=== PATIENT | female | born 1965 | race Caucasian/White ===

== ENCOUNTER → 2016-12-02 | Outpatient (REF) | payer OTHER ==
[~2016-12-02] MED LIST: METO-207 PO; OMEP20CA3 PO; PRAV40TA PO
[2016-12-02 11:44] LABS: BASO # 0.1 K/mm3 (0.0-0.2); BASO % 1.1 % (0.0-1.0); EOS # 0.1 K/mm3 (0.0-0.50); EOS % 2.2 % (0.0-3.0); LARGE UNSTAINED CELL # 0.1 K/mm3 (0.0-0.4); LARGE UNSTAINED CELL % 1.9 % (0.0-4.0); LYMPH # 2.1 K/mm3 (1.5-4.5); LYMPH % 33.3 % (24.0-44.0); MEAN CORPUSCULAR HEMOGLOBIN 30.5 pg (27.0-33.0); MEAN CORPUSCULAR HGB CONC 32.3 g/dl (32.0-36.5); MEAN CORPUSCULAR VOLUME 94.4 fl (80.0-96.0); MONO # 0.4 K/mm3 (0.0-0.8); MONO % 5.7 % (0.0-5.0); NEUTROPHILS # 3.4 K/mm3 (1.8-7.7); NEUTROPHILS % 55.9 % (36.0-66.0); PLATELET COUNT, AUTOMATED 294 k/mm3 (150-450); RED CELL DISTRIBUTION WIDTH 12.2 % (11.5-14.5); WHITE BLOOD COUNT 6.2 K/mm3 (4.0-10.0)
[2016-12-02 12:18] LABS: ALBUMIN 4.1 GM/DL (3.2-5.2); ALBUMIN/GLOBULIN RATIO 1.24 (1.00-1.93); ALKALINE PHOSPHATASE 88 U/L (45-117); ALT/SGPT 35 U/L (12-78); ANION GAP 10 MEQ/L (8-16); AST/SGOT 23 U/L (15-37); BILIRUBIN,TOTAL 0.6 MG/DL (0.2-1.0); BLOOD UREA NITROGEN 10 MG/DL (7-18); CALCIUM LEVEL 9.3 MG/DL (8.5-10.1); CARBON DIOXIDE LEVEL 29 MEQ/L (21-32); CHLORIDE LEVEL 105 MEQ/L (98-107); CHOLESTEROL LEVEL 211 MG/DL (<200); CREATININE FOR GFR 0.92 MG/DL (0.55-1.02); GLOMERULAR FILTRATION RATE > 60.0 (>51); GLUCOSE, FASTING 86 MG/DL (70-105); POTASSIUM SERUM 4.1 MEQ/L (3.5-5.1); SODIUM LEVEL 144 MEQ/L (136-145); TOTAL PROTEIN 7.4 GM/DL (6.4-8.2); TRIGLYCERIDES LEVEL 148 MG/DL (<150)
== END ==
LOC: M SFHCPLAZ 07:57
PROVIDERS: ATTEND Nurse Practitioner Family
DX: I10 Essential (primary) hypertension (principal)

== ENCOUNTER 2016-12-24 03:03 | Emergency (ER) | payer OTHER ==
[2016-12-24] MEDS ORDERED: dexameTHASONE 20 MG/5 ML VIAL (J1100) As Ordered ONE (04:51)
[2016-12-24] MEDS ORDERED: IPRATROPIUM 0.5MG/ALBUTEROL 2.5MG INH SOL UD 3ML (DUONEB)(J7620) As Ordered ONE (04:58)
--- NOTE | 2016-12-24 05:32 | EDDOCDS ---
Physician Documentation [facility] Name: Helen Carter Age: 51 yrs Sex: Female : 1965 Arrival Date: 12/24/2016 Time: 03:03 Bed 8 Private MD: Disposition: 12/24/16 04:52 Discharged to Home/Self Care. Impression: Acute bronchitis. - Condition is Stable. - Prescriptions for Prednisone 20 mg Oral Tablet - take 3 tablets by ORAL route once daily for 4 days; 12 tablet. - Medication Reconciliation, Local Pharmacy Hours, Work Release Form - 1 day form. - Follow up: Private Physician; When: Call to arrange an appointment; Reason: Recheck today's complaints. - Problem is an ongoing problem. - Symptoms have improved. Historical: - Allergies: No known drug Allergies; - Home Meds: 1. omeprazole 20 mg Oral cpDR 1 cap once daily (Last dose: 12/23/2016) 2. metoprolol succinate 25 mg Tb24 1 tab once daily (Last dose: 12/23/2016) 3. cetirizine 10 mg oral chew 1 tab once daily (Last dose: 12/23/2016) 4. simvastatin 10 mg Oral tab 1 tab once daily (Last dose: 12/23/2016) 5. ProAir HFA 90 mcg/actuation inhalation HFAA 2 puffs every 6 hours (Last dose: Unknown) 6. fluticasone 50 mcg/actuation inhalation dsdv 1 puff 2 times per day (Last dose: 12/23/2016) - PMHx: Hypercholesterolemia; Hypertension; GERD; Seasonal Allergies; - PSHx: ELENA Left ankle X2; D & C; - Social history: Smoking status: Patient states was never smoker of tobacco. No barriers to communication noted, The patient speaks fluent Palestinian, Speaks appropriately for age. - Family history: Not pertinent. - : The pt / caregiver states he / she is not on anticoagulants. Home medication list is obtained from pill bottles. - Exposure Risk Screening:: None identified. 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 0 in. (152.40 cm) (R); Pain 0/10; 03:20 Body Mass Index 34.18 (79.38 kg, 152.40 cm) [facility] MDM: 03:23 Obtain sample by nasopharyngeal swab ordered. [facility] 03:24 -Influenza A&B Rapid Antigen - Nose Ordered. EDMS 04:11 Chest, 2 View (pa\E\lat) Ordered. EDMS 04:43 Albuterol-Ipratropium 3 ml Inhalation once ordered. cs11 04:43 Call Respiratory ordered. cs11 04:43 Decadron - Dexamethasone Sodium Phosphate 10 mg IM once ordered. cs11 04:48 Call Respiratory complete. af2 Administered Medications: 04:58 Drug: Decadron - Dexamethasone Sodium Phosphate 10 mg [dexamethasone 4 mg/mL injection af2 solution (2.5 mL)] Route: IM; Site: right gluteus; 04:59 Drug: Albuterol-Ipratropium 3 ml [ipratropium-albuterol 0.5 mg-3 mg(2.5 mg base)/3 mL [facility] nebulization soln (3 mL)] Route: Inhalation; Signatures: Dispatcher [employer] EDCT Prabha Dolan, RN RN [facility] Duane Irwin DO DO cs11 Alyse Pappas RN RN 2 Jose Beth [facility] MTDD
--- NOTE | 2016-12-24 05:32 | EDDOCDS ---
Nurse's Notes Name: Helen Carter Age: 51 yrs Sex: Female : 1965 Arrival Date: 12/24/2016 Time: 03:03 Bed 8 Private MD: Diagnosis: Acute bronchitis Presentation: 12/24 03:14 Presenting complaint: Patient states: Ill since yesterday, hot, cough, nasal kmg1 congestion. Suicide/Homicide risk assessment- the patient denies having any suicidal and/or homicidal ideations and does not present with any other emotional, behavioral or mental health complaints. Status: Patient is not a child protective services specialist or dependent. Transition of care: patient was not received from another setting of care. 03:14 Acuity: DELMY Level 5 km 03:14 Method Of Arrival: Walkin/Carried/Asstd km 05:31 Adult Sepsis Screening: The patient does not have new or worsening altered mentation. af2 Patient's respiratory rate is less than 22. Systolic blood pressure is greater than 100. Patient has a qSOFA score of 0- Negative Sepsis Screen. Triage Assessment: 03:20 General: Appears in no apparent distress, ill, Behavior is appropriate for age, kmg1 cooperative, pleasant. Pain: Denies pain. HIV screening NA for this visit Offered previously. EENT: Parent/caregiver reports the patient having nasal congestion nasal discharge. Respiratory: Airway is patent Respiratory effort is even, unlabored, Respiratory pattern is regular, symmetrical. 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 omeprazole 20 mg Oral cpDR 1 cap once daily (Last dose: 12/23/2016) 2. metoprolol succinate 25 mg Tb24 1 tab once daily (Last dose: 12/23/2016) 3. cetirizine 10 mg oral chew 1 tab once daily (Last dose: 12/23/2016) 4. simvastatin 10 mg Oral tab 1 tab once daily (Last dose: 12/23/2016) 5. ProAir HFA 90 mcg/actuation inhalation HFAA 2 puffs every 6 hours (Last dose: Unknown) 6. fluticasone 50 mcg/actuation inhalation dsdv 1 puff 2 times per day (Last dose: 12/23/2016) - PMHx: Hypercholesterolemia; Hypertension; GERD; Seasonal Allergies; - PSHx: ELENA Left ankle X2; D & C; - Social history: Smoking status: Patient states was never smoker of tobacco. No barriers to communication noted, The patient speaks fluent Venezuelan, Speaks appropriately for age. - Family history: Not pertinent. - : The pt / caregiver states he / she is not on anticoagulants. Home medication list is obtained from pill bottles. - Exposure Risk Screening:: None identified. Screenin:30 Screening information is obtained from the patient. Fall risk: No risks identified. af2 Assistance ADL's: requires no assistance with activities of daily living. Abuse/DV Screen: The patient / caregiver reports he/she is: not in a situation that causes fear, pain or injury. Nutritional screening: No deficits noted. Advance Directives: Currently, there is no health care proxy. home support is adequate. Assessment: 05:30 General: Appears in no apparent distress, Behavior is cooperative. Respiratory: Airway af2 is patent Respiratory effort is even, unlabored, Breath sounds with wheezes expiratory Reports cough that is. Derm: Skin is pink, warm & dry. Vital Signs: 03:20 BP 140 / 71; Pulse 56; Resp 20; Temp 97.2(O); Pulse Ox 97% on R/A; Weight 79.38 kg (R); kmg1 Height 5 ft. 0 in. (152.40 cm) (R); Pain 0/10; 03:20 Body Mass Index 34.18 (79.38 kg, 152.40 cm) [facility] Vitals: 03:20 Log In Time: December 24, 2016 at 03:05. [facility] ED Course: 03:04 Patient visited by Margot Chavez Reg. 2 03:04 Patient moved to [place] [id number] 03:15 Triage Initiated [facility] 04:10 Duane Irwin DO is Attending Physician. cs11 04:11 Patient visited by Duane Irwin DO. [facility] 04:26 Alyse Ppapas,RN is Primary Nurse. [facility] 04:26 Patient moved to [facility] 05:31 The patient / caregiver is instructed regarding the plan of care and ED course. Patient af2 has correct armband on for positive identification. 05:31 No IV's were initiated during this patient's visit. No procedures done that require af2 assistance. Administered Medications: 04:58 Drug: Decadron - Dexamethasone Sodium Phosphate 10 mg [dexamethasone 4 mg/mL injection af2 solution (2.5 mL)] Route: IM; Site: right gluteus; 04:59 Drug: Albuterol-Ipratropium 3 ml [ipratropium-albuterol 0.5 mg-3 mg(2.5 mg base)/3 mL 6 nebulization soln (3 mL)] Route: Inhalation; RT: 05:01 Initial Med Neb Given as ordered Patient was instructed and evaluated on procedure jh6 Patient tolerated procedure well without adverse effect. Respiratory: Airway is patent Respiratory effort is even, unlabored, Respiratory pattern is regular symmetrical, Breath sounds are clear in left posterior upper lobe, right posterior upper lobe, left posterior lower lobe, right posterior middle lobe and right posterior lower lobe. Order Results: Lab Order: -Influenza A&B Rapid Antigen - Nose; SPEC'M 12/24/16 03:25 Test: INFLUENZA A RAPID SCR by ICA; Value: INFLUENZA A RESULTS NEGATIVE; Status: F Test: INFLUENZA A RAPID SCR by ICA; Value: Comments:; Status: F Test: INFLUENZA B RAPID SCR by ICA; Value: INFLUENZA B RESULTS NEGATIVE; Status: F Test Note: ; The Influenza test is a direct rapid immunoassay for the qualitative detection of Influenza viral antigen. Cell culture (Viral Culture) testing should be considered to confirm NEGATIVE results and to assist in detecting other viruses that can provide similar clinical symptoms. Please contact the lab within 24 hours ([phone]) if confirmatory testing is desired. Outcome: 04:52 Discharge ordered by Provider. cs11 05:31 Discharge Assessment: Patient awake, alert and oriented x 3. No cognitive and/or af2 functional deficits noted. Patient verbalized understanding of disposition instructions. patient administered narcotics - no. The following High Risk Discharge criteria are identified: None. Discharged to home ambulatory. Condition: stable. Discharge instructions given to patient, Instructed on discharge instructions, follow up and referral plans. medication usage, Demonstrated understanding of instructions, medications, Pt was receptive of discharge instructions/ teaching. No special radiology studies were completed. Property :Personal belongings accompany Pt. 05:32 Patient left the ED. af2 Signatures: Prabha Dolan RN RN kmg1 Hollis, Jacob 6 Duane Irwin DO DO cs11 Breanna Huber LPN LPN [facility] [place], Amber,RN RN af2 Margot Chavez, Reg Reg hs2 MTDD
--- NOTE | 2016-12-24 07:20 | REP ---
Clinical: Acute cough . Comparison: 11/23/2013 . Technique: PA and lateral. Findings: The mediastinum and cardiac silhouette are normal. The lung mckee are clear and without acute consolidation, effusion, or pneumothorax. The skeletal structures are intact and normal. Impression: 1. No acute cardiopulmonary process. Signed by Josue Mireles MD 12/24/2016 07:12 A
--- NOTE | 2016-12-26 06:32 | EDDOCDS ---
Physician Documentation [facility] Name: Helen Carter Age: 51 yrs Sex: Female : 1965 Arrival Date: 12/24/2016 Time: 03:03 Bed 8 Private MD: Disposition: 12/24/16 04:52 Discharged to Home/Self Care. Impression: Acute bronchitis. - Condition is Stable. - Prescriptions for Prednisone 20 mg Oral Tablet - take 3 tablets by ORAL route once daily for 4 days; 12 tablet. - Medication Reconciliation, Local Pharmacy Hours, Work Release Form - 1 day form. - Follow up: Private Physician; When: Call to arrange an appointment; Reason: Recheck today's complaints. - Problem is an ongoing problem. - Symptoms have improved. Historical: - Allergies: No known drug Allergies; - Home Meds: 1. omeprazole 20 mg Oral cpDR 1 cap once daily (Last dose: 12/23/2016) 2. metoprolol succinate 25 mg Tb24 1 tab once daily (Last dose: 12/23/2016) 3. cetirizine 10 mg oral chew 1 tab once daily (Last dose: 12/23/2016) 4. simvastatin 10 mg Oral tab 1 tab once daily (Last dose: 12/23/2016) 5. ProAir HFA 90 mcg/actuation inhalation HFAA 2 puffs every 6 hours (Last dose: Unknown) 6. fluticasone 50 mcg/actuation inhalation dsdv 1 puff 2 times per day (Last dose: 12/23/2016) - PMHx: Hypercholesterolemia; Hypertension; GERD; Seasonal Allergies; - PSHx: ELENA Left ankle X2; D & C; - Social history: Smoking status: Patient states was never smoker of tobacco. No barriers to communication noted, The patient speaks fluent Comoran, Speaks appropriately for age. - Family history: Not pertinent. - : The pt / caregiver states he / she is not on anticoagulants. Home medication list is obtained from pill bottles. - Exposure Risk Screening:: None identified. 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 0 in. (152.40 cm) (R); Pain 0/10; 03:20 Body Mass Index 34.18 (79.38 kg, 152.40 cm) [facility] MDM: 03:23 Obtain sample by nasopharyngeal swab ordered. [facility] 03:24 -Influenza A&B Rapid Antigen - Nose Ordered. EDMS 04:11 Chest, 2 View (pa\E\lat) Ordered. EDMS 04:43 Albuterol-Ipratropium 3 ml Inhalation once ordered. cs11 04:43 Call Respiratory ordered. cs11 04:43 Decadron - Dexamethasone Sodium Phosphate 10 mg IM once ordered. cs11 04:48 Call Respiratory complete. af2 05:51 [facility] Payment Agreement was scanned into [employer] and attached to record. hs2 09:19 T-Sheet-- Draft Copy was scanned into [employer] and attached to record. [facility] Administered Medications: 04:58 Drug: Decadron - Dexamethasone Sodium Phosphate 10 mg [dexamethasone 4 mg/mL injection 2 solution (2.5 mL)] Route: IM; Site: right gluteus; 04:59 Drug: Albuterol-Ipratropium 3 ml [ipratropium-albuterol 0.5 mg-3 mg(2.5 mg base)/3 mL 6 nebulization soln (3 mL)] Route: Inhalation; Signatures: Dispatcher [employer] EDND Prabha Dolan, RN RN g1 Duane rIwin DO DO cs11 Alyse Pappas RN RN 2 Margot Chavez, Reg Reg hs2 Mary Huang Jacob [facility] The chart was reviewed and I authenticate all verbal orders and agree with the evaluation and treatment provided.Attachments: 05:51 [facility] Payment Agreement hs2 09:19 T-Sheet-- Draft Copy [facility] Chart Complete MTDD
--- NOTE | 2016-12-26 06:32 | EDDOCDS ---
Physician Documentation [facility] Name: Helen Carter Age: 51 yrs Sex: Female : 1965 Arrival Date: 12/24/2016 Time: 03:03 Bed 8 Private MD: Disposition: 12/24/16 04:52 Discharged to Home/Self Care. Impression: Acute bronchitis. - Condition is Stable. - Prescriptions for Prednisone 20 mg Oral Tablet - take 3 tablets by ORAL route once daily for 4 days; 12 tablet. - Medication Reconciliation, Local Pharmacy Hours, Work Release Form - 1 day form. - Follow up: Private Physician; When: Call to arrange an appointment; Reason: Recheck today's complaints. - Problem is an ongoing problem. - Symptoms have improved. Historical: - Allergies: No known drug Allergies; - Home Meds: 1. omeprazole 20 mg Oral cpDR 1 cap once daily (Last dose: 12/23/2016) 2. metoprolol succinate 25 mg Tb24 1 tab once daily (Last dose: 12/23/2016) 3. cetirizine 10 mg oral chew 1 tab once daily (Last dose: 12/23/2016) 4. simvastatin 10 mg Oral tab 1 tab once daily (Last dose: 12/23/2016) 5. ProAir HFA 90 mcg/actuation inhalation HFAA 2 puffs every 6 hours (Last dose: Unknown) 6. fluticasone 50 mcg/actuation inhalation dsdv 1 puff 2 times per day (Last dose: 12/23/2016) - PMHx: Hypercholesterolemia; Hypertension; GERD; Seasonal Allergies; - PSHx: ELENA Left ankle X2; D & C; - Social history: Smoking status: Patient states was never smoker of tobacco. No barriers to communication noted, The patient speaks fluent Finnish, Speaks appropriately for age. - Family history: Not pertinent. - : The pt / caregiver states he / she is not on anticoagulants. Home medication list is obtained from pill bottles. - Exposure Risk Screening:: None identified. 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 0 in. (152.40 cm) (R); Pain 0/10; 03:20 Body Mass Index 34.18 (79.38 kg, 152.40 cm) [facility] MDM: 03:23 Obtain sample by nasopharyngeal swab ordered. [facility] 03:24 -Influenza A&B Rapid Antigen - Nose Ordered. EDMS 04:11 Chest, 2 View (pa\E\lat) Ordered. EDMS 04:43 Albuterol-Ipratropium 3 ml Inhalation once ordered. cs11 04:43 Call Respiratory ordered. cs11 04:43 Decadron - Dexamethasone Sodium Phosphate 10 mg IM once ordered. cs11 04:48 Call Respiratory complete. af2 05:51 [facility] Payment Agreement was scanned into [employer] and attached to record. hs2 09:19 T-Sheet-- Draft Copy was scanned into [employer] and attached to record. [facility] Administered Medications: 04:58 Drug: Decadron - Dexamethasone Sodium Phosphate 10 mg [dexamethasone 4 mg/mL injection 2 solution (2.5 mL)] Route: IM; Site: right gluteus; 04:59 Drug: Albuterol-Ipratropium 3 ml [ipratropium-albuterol 0.5 mg-3 mg(2.5 mg base)/3 mL 6 nebulization soln (3 mL)] Route: Inhalation; Signatures: Dispatcher [employer] EDOK Prabha Dolan, RN RN g1 Duane Irwin DO DO cs11 Alyse Pappas RN RN 2 Margot Chavez, Reg Reg hs2 Mary Huang Jacob [facility] The chart was reviewed and I authenticate all verbal orders and agree with the evaluation and treatment provided.Attachments: 05:51 [facility] Payment Agreement hs2 09:19 T-Sheet-- Draft Copy [facility] Chart Complete MTDD
--- NOTE | 2016-12-26 06:32 | EDDOCDS ---
Nurse's Notes [facility] Name: Helen Carter Age: 51 yrs Sex: Female : 1965 Arrival Date: 12/24/2016 Time: 03:03 Bed 8 Private MD: Diagnosis: Acute bronchitis Presentation: 12/24 03:14 Presenting complaint: Patient states: Ill since yesterday, hot, cough, nasal kmg1 congestion. Suicide/Homicide risk assessment- the patient denies having any suicidal and/or homicidal ideations and does not present with any other emotional, behavioral or mental health complaints. Status: Patient is not a sales service supervisor or dependent. Transition of care: patient was not received from another setting of care. 03:14 Acuity: DELYM Level 5 km 03:14 Method Of Arrival: Walkin/Carried/Asstd km 05:31 Adult Sepsis Screening: The patient does not have new or worsening altered mentation. af2 Patient's respiratory rate is less than 22. Systolic blood pressure is greater than 100. Patient has a qSOFA score of 0- Negative Sepsis Screen. Triage Assessment: 03:20 General: Appears in no apparent distress, ill, Behavior is appropriate for age, kmg1 cooperative, pleasant. Pain: Denies pain. HIV screening NA for this visit Offered previously. EENT: Parent/caregiver reports the patient having nasal congestion nasal discharge. Respiratory: Airway is patent Respiratory effort is even, unlabored, Respiratory pattern is regular, symmetrical. 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 omeprazole 20 mg Oral cpDR 1 cap once daily (Last dose: 12/23/2016) 2. metoprolol succinate 25 mg Tb24 1 tab once daily (Last dose: 12/23/2016) 3. cetirizine 10 mg oral chew 1 tab once daily (Last dose: 12/23/2016) 4. simvastatin 10 mg Oral tab 1 tab once daily (Last dose: 12/23/2016) 5. ProAir HFA 90 mcg/actuation inhalation HFAA 2 puffs every 6 hours (Last dose: Unknown) 6. fluticasone 50 mcg/actuation inhalation dsdv 1 puff 2 times per day (Last dose: 12/23/2016) - PMHx: Hypercholesterolemia; Hypertension; GERD; Seasonal Allergies; - PSHx: ELENA Left ankle X2; D & C; - Social history: Smoking status: Patient states was never smoker of tobacco. No barriers to communication noted, The patient speaks fluent Greek, Speaks appropriately for age. - Family history: Not pertinent. - : The pt / caregiver states he / she is not on anticoagulants. Home medication list is obtained from pill bottles. - Exposure Risk Screening:: None identified. Screenin:30 Screening information is obtained from the patient. Fall risk: No risks identified. af2 Assistance ADL's: requires no assistance with activities of daily living. Abuse/DV Screen: The patient / caregiver reports he/she is: not in a situation that causes fear, pain or injury. Nutritional screening: No deficits noted. Advance Directives: Currently, there is no health care proxy. home support is adequate. Assessment: 05:30 General: Appears in no apparent distress, Behavior is cooperative. Respiratory: Airway af2 is patent Respiratory effort is even, unlabored, Breath sounds with wheezes expiratory Reports cough that is. Derm: Skin is pink, warm & dry. Vital Signs: 03:20 BP 140 / 71; Pulse 56; Resp 20; Temp 97.2(O); Pulse Ox 97% on R/A; Weight 79.38 kg (R); kmg1 Height 5 ft. 0 in. (152.40 cm) (R); Pain 0/10; 03:20 Body Mass Index 34.18 (79.38 kg, 152.40 cm) [facility] Vitals: 03:20 Log In Time: December 24, 2016 at 03:05. [facility] ED Course: 03:04 Patient visited by Margot Chavez Reg. hs2 03:04 Patient moved to [facility] 03:15 Triage Initiated [facility] 04:10 Duane Irwin DO is Attending Physician. cs11 04:11 Patient visited by Duane Irwin DO. [facility] 04:26 Alyse Pappas,RN is Primary Nurse. [facility] 04:26 Patient moved to [facility] 05:31 The patient / caregiver is instructed regarding the plan of care and ED course. Patient af2 has correct armband on for positive identification. 05:31 No IV's were initiated during this patient's visit. No procedures done that require af2 assistance. 05:51 [facility] Payment Agreement was scanned into [employer] and attached to record. hs2 07:34 Chest, 2 View (pa\E\lat) Returned. EDMS 09:19 T-Sheet-- Draft Copy was scanned into [employer] and attached to record. [facility] Administered Medications: 04:58 Drug: Decadron - Dexamethasone Sodium Phosphate 10 mg [dexamethasone 4 mg/mL injection af2 solution (2.5 mL)] Route: IM; Site: right gluteus; 04:59 Drug: Albuterol-Ipratropium 3 ml [ipratropium-albuterol 0.5 mg-3 mg(2.5 mg base)/3 mL jh6 nebulization soln (3 mL)] Route: Inhalation; RT: 05:01 Initial Med Neb Given as ordered Patient was instructed and evaluated on procedure jh6 Patient tolerated procedure well without adverse effect. Respiratory: Airway is patent Respiratory effort is even, unlabored, Respiratory pattern is regular symmetrical, Breath sounds are clear in left posterior upper lobe, right posterior upper lobe, left posterior lower lobe, right posterior middle lobe and right posterior lower lobe. Order Results: Lab Order: -Influenza A&B Rapid Antigen - Nose; SPEC'M 12/24/16 03:25 Test: INFLUENZA A RAPID SCR by ICA; Value: INFLUENZA A RESULTS NEGATIVE; Status: F Test: INFLUENZA A RAPID SCR by ICA; Value: Comments:; Status: F Test: INFLUENZA B RAPID SCR by ICA; Value: INFLUENZA B RESULTS NEGATIVE; Status: F Test Note: ; The Influenza test is a direct rapid immunoassay for the qualitative detection of Influenza viral antigen. Cell culture (Viral Culture) testing should be considered to confirm NEGATIVE results and to assist in detecting other viruses that can provide similar clinical symptoms. Please contact the lab within 24 hours ([phone]) if confirmatory testing is desired. Radiology Order: Chest, 2 View (pa\E\lat) Test: Chest, 2 View (pa\E\lat) REASON FOR EXAMINATION: Cough; Clinical: Acute cough .; ; Comparison: 11/23/2013 .; ; Technique: PA and lateral.; ; Findings:; The mediastinum and cardiac silhouette are normal. The lung mckee are clear and; without acute consolidation, effusion, or pneumothorax. The skeletal structures; are intact and normal.; ; Impression:; 1. No acute cardiopulmonary process.; ; ; Signed by; Josue Mireles MD 12/24/2016 07:12 A; Outcome: 04:52 Discharge ordered by Provider. cs11 05:31 Discharge Assessment: Patient awake, alert and oriented x 3. No cognitive and/or af2 functional deficits noted. Patient verbalized understanding of disposition instructions. patient administered narcotics - no. The following High Risk Discharge criteria are identified: None. Discharged to home ambulatory. Condition: stable. Discharge instructions given to patient, Instructed on discharge instructions, follow up and referral plans. medication usage, Demonstrated understanding of instructions, medications, Pt was receptive of discharge instructions/ teaching. No special radiology studies were completed. Property :Personal belongings accompany Pt. 05:32 Patient left the ED. af2 Signatures: Dispatcher [employer] EDMS Prabha Dolan, RN RN kmg1 Jose Beth jh6 Duane Irwin, DO cs11 Breanna Huber LPN Alyse Alexander RN RN af2 Margot Chavez, Reg Reg hs2 Mary Huang Chart [facility]
== END 2016-12-24 05:32 | disposition home or self-care (01) ==
LOC: M ED 03:03
DX: J20.9 Acute bronchitis, unspecified (principal); E78.00 Pure hypercholesterolemia, unspecified; I10 Essential (primary) hypertension; K21.9 Gastro-esophageal reflux disease without esophagitis; J30.2 Other seasonal allergic rhinitis; Z79.899 Other long term (current) drug therapy

== ENCOUNTER 2017-01-24 21:12 | Emergency (ER) | payer OTHER ==
[~2017-01-24] VITALS: Ht 152.4 cm; Wt 81.6 kg
[~2017-01-24 21:12] MED LIST changes: -ALBU17IN2 INH; -CETI10TA PO; -CIPR500T3 PO; -CIPR500T89 PO; -FLON1SPR; -FLUT1SPR2; -HYDR-3713 PO; -METO25TA74 PO; -NORCOTAB PO; -PERCOCET PO; -PROA1AER; -SIMV10TA2; -SIMV10TA2 PO
[2017-01-24] MEDS ORDERED: CETI10TA PO (21:19)
[2017-01-24] MEDS ORDERED: FLUT1SPR2 (21:19)
[2017-01-24] MEDS ORDERED: NS 1,000 ML IV SCH (22:01)
[2017-01-24] MEDS ORDERED: ONDANSETRON 4MG/2ML VIAL (J2405) IV ONE (22:15)
[2017-01-24] MEDS ORDERED: KETOROLAC 30 MG/ML VIAL (J1885) IV ONE (22:15)
[2017-01-24] MEDS: MORPHINE 4 MG/ML 1ML SYRINGE IV PRN ×2 (22:30→23:51)
[2017-01-24 22:50] LABS: BASO # 0.1 K/mm3 (0.0-0.2); BASO % 0.9 % (0.0-1.0); EOS # 0.2 K/mm3 (0.0-0.50); EOS % 2.8 % (0.0-3.0); LARGE UNSTAINED CELL # 0.1 K/mm3 (0.0-0.4); LARGE UNSTAINED CELL % 1.8 % (0.0-4.0); LYMPH # 2.9 K/mm3 (1.5-4.5); MEAN CORPUSCULAR HEMOGLOBIN 30.1 pg (27.0-33.0); MEAN CORPUSCULAR HGB CONC 32.8 g/dl (32.0-36.5); MEAN CORPUSCULAR VOLUME 91.7 fl (80.0-96.0); MONO # 0.4 K/mm3 (0.0-0.8); MONO % 5.7 % (0.0-5.0); NEUTROPHILS # 3.7 K/mm3 (1.8-7.7); NEUTROPHILS % 50.8 % (36.0-66.0); PLATELET COUNT, AUTOMATED 346 k/mm3 (150-450); RED CELL DISTRIBUTION WIDTH 12.8 % (11.5-14.5); WHITE BLOOD COUNT 7.2 K/mm3 (4.0-10.0)
[2017-01-24 22:55] LABS: CONTROL LINE UCG INT CTR LINE PRESENT
[2017-01-24 22:57] LABS: INR 0.9
[2017-01-24 23:09] LABS: ALBUMIN 3.9 GM/DL (3.2-5.2); ALBUMIN/GLOBULIN RATIO 1.11 (1.00-1.93); ALKALINE PHOSPHATASE 87 U/L (45-117); ALT/SGPT 34 U/L (12-78); ANION GAP 6 MEQ/L (8-16); AST/SGOT 23 U/L (15-37); BILIRUBIN,DIRECT < 0.1 MG/DL (0.0-0.2); BILIRUBIN,TOTAL 0.2 MG/DL (0.2-1.0); BLOOD UREA NITROGEN 8 MG/DL (7-18); CALCIUM LEVEL 8.6 MG/DL (8.5-10.1); CARBON DIOXIDE LEVEL 30 MEQ/L (21-32); CHLORIDE LEVEL 107 MEQ/L (98-107); CREATININE FOR GFR 0.85 MG/DL (0.55-1.02); GLOMERULAR FILTRATION RATE > 60.0 (>51); GLUCOSE, FASTING 91 MG/DL (70-105); POTASSIUM SERUM 3.6 MEQ/L (3.5-5.1); SODIUM LEVEL 143 MEQ/L (136-145); TOTAL PROTEIN 7.4 GM/DL (6.4-8.2)
[2017-01-24 23:18] LABS: CONTROL LINE HCG INT CTR LINE PRESENT
--- NOTE | 2017-01-24 23:30 | REPUSA ---
CT of the abdomen and pelvis without contrast Clinical statement: Pain. Technique: Multiple axial CT images were obtained from the base of the lungs to the floor of the pelv is utilizing 5 mm axial slices without administration of contrast. Coronal and sagittal reconstructio ns were also obtained. Comparison: 06/04/2015. Findings: Chest: The visualized lung bases are clear. Abdomen: The kidneys are normal in size bilaterally. There is no evidence of hydronephrosis or nephro lithiasis. The liver is enlarged, measuring 21 cm in diameter. No focal hepatic masses are identified . The spleen, pancreas, gallbladder and adrenal glands are unremarkable. The aorta demonstrates kang l caliber and contour. There is no abdominal lymphadenopathy or ascites. Pelvis: The bowel is unremarkable, with no obstructive or inflammatory changes. Minimal sigmoid diver ticulosis is noted without evidence of diverticulitis. The appendix is normal. The urinary bladder is within normal limits. There is no pelvic lymphadenopathy or ascites. The other pelvic structures camelia ear unremarkable. Bones: There are no suspicious osseous abnormalities seen. Impression: 1. No evidence of hydronephrosis or nephrolithiasis. 2. No obstructive or inflammatory bowel changes. Sigmoid diverticulosis without evidence of diverticu litis. 3. Hepatomegaly.
[2017-01-24] MEDS ORDERED: CIPR500T89 PO (23:52)
[2017-01-24] MEDS ORDERED: NORCOTAB PO (23:53)
[2017-01-25] MEDS ORDERED: CIPROFLOXACIN 500 MG TAB PO ONE
[2017-01-25 00:10] VITALS: BP 137/61
[2017-01-26] MEDS ORDERED: SIMV10TA2 (11:23)
[2017-01-26] MEDS ORDERED: PROA1AER (11:23)
[2017-01-26] MEDS ORDERED: CETI10TA PO (17:20)
[2017-01-26] MEDS ORDERED: METO25TA74 PO (17:20)
[2017-01-26] MEDS ORDERED: ALBU17IN2 INH (17:20)
[2017-01-26] MEDS ORDERED: OMEP20CA3 PO (17:20)
[2017-01-26] MEDS ORDERED: HYDR-3713 PO (17:20)
[2017-01-26] MEDS ORDERED: FLON1SPR (17:20)
[2017-01-26] MEDS ORDERED: CIPR500T3 PO (17:20)
[2017-01-26] MEDS ORDERED: SIMV10TA2 PO (17:20)
== END 2017-01-25 00:36 | disposition home or self-care (01) ==
LOC: M ED 22:00
DX: N39.0 Urinary tract infection, site not specified (principal); R10.9 Unspecified abdominal pain; I10 Essential (primary) hypertension; K21.9 Gastro-esophageal reflux disease without esophagitis; R16.0 Hepatomegaly, not elsewhere classified; Z79.899 Other long term (current) drug therapy

== ENCOUNTER → 2017-01-24 | Outpatient (REF) | payer OTHER ==
[~2017-01-24] MED LIST changes: +ALBU17IN2 INH; +CETI10TA PO; +CIPR500T3 PO; +CIPR500T89 PO; +FLON1SPR; +FLUT1SPR2; +HYDR-3713 PO; +METO25TA74 PO; +NORCOTAB PO; +PERCOCET PO; +PROA1AER; +SIMV10TA2; +SIMV10TA2 PO
== END ==
LOC: M LAB REF 22:18
PROVIDERS: ATTEND Nurse Practitioner Family
DX: E34.9 Endocrine disorder, unspecified (principal)

== ENCOUNTER 2017-01-26 11:03 | Observation (INO) | payer OTHER ==
[~2017-01-26] VITALS: Ht 152.4 cm; Wt 82.3 kg
[~2017-01-26 11:03] MED LIST changes: +CETI10TA PO; +CIPR500T89 PO; +FLUT1SPR2; +NORCOTAB PO
[2017-01-26] MEDS ORDERED: PROA1AER (11:23)
[2017-01-26] MEDS ORDERED: SIMV10TA2 (11:23)
--- NOTE | 2017-01-26 12:49 | REP ---
PELVIC AND ENDOVAGINAL PROBE ULTRASOUND: 01/26/2017 CLINICAL HISTORY: 52-year female with positive hCG (6). Negative CT abdomen pelvis without contrast on 01/24/2017. No pelvic mass. FINDINGS. Transabdominal and endovaginal probes were performed. The bladder has very limited fluid within. Uterus anteverted measures 6.2 x 2.5 x 4.7 cm and is somewhat heterogeneous. Exam somewhat limited due to bowel and content and gas and relative poor patient tolerance. There is no evidence of free fluid. Endometrial stripe has a thickness of 2.1 mm. There is a trace amount of fluid in the endocervical canal but not in the endometrial cavity. Right ovary is 1.7 x 1.2 x 1.4 cm. The left ovary 1.3 x 0.8 x 0.7 cm. Both ovaries show blood flow with resistive index 0.5 on the right and 0.66 on the left. There is no nodule or mass. IMPRESSION: 1. Uterus anteverted, not enlarged and with somewhat heterogeneous myometrium without discrete mass. There is a thin endometrial stripe about 2.1 mm without fluid in the endometrial cavity. Trace fluid in the endocervical canal and nabothian cyst. 2. Ovaries are normal size for post menopausal patient with normal blood flow and no mass or adjacent fluid. Normal blood flow to both. Signed by Jay Brand MD 01/26/2017 05:51 P
[2017-01-26 13:07] LABS: BASO # 0.1 K/mm3 (0.0-0.2); BASO % 0.8 % (0.0-1.0); EOS # 0.2 K/mm3 (0.0-0.50); EOS % 2.3 % (0.0-3.0); LARGE UNSTAINED CELL # 0.1 K/mm3 (0.0-0.4); LARGE UNSTAINED CELL % 1.1 % (0.0-4.0); LYMPH # 1.6 K/mm3 (1.5-4.5); LYMPH % 23.1 % (24.0-44.0); MEAN CORPUSCULAR HEMOGLOBIN 30.3 pg (27.0-33.0); MEAN CORPUSCULAR HGB CONC 32.1 g/dl (32.0-36.5); MEAN CORPUSCULAR VOLUME 94.3 fl (80.0-96.0); MONO # 0.3 K/mm3 (0.0-0.8); MONO % 4.5 % (0.0-5.0); NEUTROPHILS # 4.7 K/mm3 (1.8-7.7); NEUTROPHILS % 68.2 % (36.0-66.0); PLATELET COUNT, AUTOMATED 360 k/mm3 (150-450); RED CELL DISTRIBUTION WIDTH 12.6 % (11.5-14.5); WHITE BLOOD COUNT 6.8 K/mm3 (4.0-10.0)
[2017-01-26 13:12] LABS: ALBUMIN 4.1 GM/DL (3.2-5.2); ALBUMIN/GLOBULIN RATIO 1.37 (1.00-1.93); ALKALINE PHOSPHATASE 91 U/L (45-117); ALT/SGPT 39 U/L (12-78); ANION GAP 4 MEQ/L (8-16); AST/SGOT 23 U/L (15-37); BILIRUBIN,DIRECT 0.1 MG/DL (0.0-0.2); BILIRUBIN,TOTAL 0.4 MG/DL (0.2-1.0); BLOOD UREA NITROGEN 5 MG/DL (7-18); CALCIUM LEVEL 9.5 MG/DL (8.5-10.1); CARBON DIOXIDE LEVEL 31 MEQ/L (21-32); CHLORIDE LEVEL 107 MEQ/L (98-107); CREATININE FOR GFR 0.94 MG/DL (0.55-1.02); GLOMERULAR FILTRATION RATE > 60.0 (>51); GLUCOSE, FASTING 95 MG/DL (70-105); SODIUM LEVEL 142 MEQ/L (136-145); TOTAL PROTEIN 7.1 GM/DL (6.4-8.2)
[2017-01-26] MEDS ORDERED: METOCLOPRAMIDE INJ 10MG/2ML VIAL (J2765) IV ONE (13:30)
[2017-01-26] MEDS ORDERED: KETOROLAC 30 MG/ML VIAL (J1885) IV ONE (13:30)
--- NOTE | 2017-01-26 14:09 | REP ---
ACUTE ABDOMINAL SERIES: 01/26/2017. Comparison: Chest x-ray 12/24/2016, CT 01/24/2017. Clinical history: Abdominal pain. Positive hCG in a 52-year-old with CT negative for abdominal mass 2 days ago. Ultrasound without acute finding today. Findings: PA chest: Lungs adequately inflated and are clear. The heart, mediastinal and hilar contours are normal. Airway and aorta normal. Bones intact. No free air. Flat upright abdomen: Gas pattern normal. No dilated loops or air-fluid levels. No mass or free air. No abnormal calcification. Bones without acute finding. Impression: 1. Negative for any acute abnormalities in the chest or abdomen by plain film. Signed by Jay Brand MD 01/26/2017 05:52 P
[2017-01-26] MEDS ORDERED: GASTROGRAFIN SOLUTION 30ML (Q9963) PO ONE ×2 (14:45→15:15)
[2017-01-26] MEDS ORDERED: MORPHINE 4 MG/ML 1ML SYRINGE IV ONE (15:30)
[2017-01-26] MEDS ORDERED: ISOVUE-370 76% 100ML VIAL (Q9967) As Ordered ONE (15:58)
--- NOTE | 2017-01-26 16:25 | REP ---
Clinical: Acute left-sided abdominal pain. Technique: Axial contrast enhanced images from the lung bases to the pubic symphysis using 100 ml Isovue 370 intravenous contrast material with coronal and sagittal re-formations. Comparison: 01/24/2017, 06/04/2015. Findings: Lung bases clear. Visualized heart and pericardium normal. Hepatic steatosis without focal hepatic lesion identified. Spleen, pancreas, gallbladder, bilateral adrenal glands and kidneys are normal. The enteric system demonstrates small hiatal hernia at the gastroesophageal junction and is otherwise without obstruction or acute inflammatory process. Colonic and predominantly sigmoid diverticula noted without acute diverticulitis. Normal terminal ileum and appendix identified in the right lower quadrant. Pelvis demonstrates normal bladder and age-appropriate uterus/adnexa. No pelvic fluid or ascites. No free air. No intraperitoneal or retroperitoneal adenopathy. No mass lesion. Vasculature is normal. Surrounding musculoskeletal structures are intact. Impression: 1. No acute intra-abdominal or pelvic pathology appreciated. No free fluid. No adenopathy. 2. Small hiatal hernia. 3. Scattered sigmoid diverticula without acute diverticulitis. 4. Hepatosteatosis Signed by Josue Mireles MD 01/26/2017 04:17 P
[2017-01-26] MEDS ORDERED: SIMV10TA2 PO (17:20)
[2017-01-26] MEDS ORDERED: FLON1SPR (17:20)
[2017-01-26] MEDS ORDERED: CIPR500T3 PO (17:20)
[2017-01-26] MEDS ORDERED: HYDR-3713 PO (17:20)
[2017-01-26] MEDS ORDERED: CETI10TA PO (17:20)
[2017-01-26] MEDS ORDERED: METO25TA74 PO (17:20)
[2017-01-26] MEDS ORDERED: OMEP20CA3 PO (17:20)
[2017-01-26] MEDS ORDERED: ALBU17IN2 INH (17:20)
[2017-01-26] MEDS ORDERED: PERCOCET 5MG/325MG TAB PO PRN (18:30)
[2017-01-26] MEDS ORDERED: MOM 30ML SUSPENSION UDC PO ONE (18:30)
[2017-01-26] MEDS ORDERED: ACETAMINOPHEN TAB 650MG DOSE (2X325MG) PO PRN (18:30)
[2017-01-26] MEDS ORDERED: MAGNESIUM CITRATE 300 ML BTL PO ONE (18:30)
[2017-01-26] MEDS ORDERED: MOM 30ML SUSPENSION UDC PO PRN (18:30)
[2017-01-26] MEDS ORDERED: ONDANSETRON 4 MG TAB (S0181) PO PRN (18:30)
[2017-01-26] MEDS ORDERED: ALBUTEROL 90 MCG/ACT 8GM HFA INHALER INH PRN (18:45)
[2017-01-26] MEDS ORDERED: MORPHINE 2 MG/ML 1ML SYRINGE IV PRN (19:30)
--- NOTE | 2017-01-26 19:59 | HPEPDOC ---
General Date of Admission Jan 26, 2017 at 18:17 Primary Care Physician: Nanette Guadarrama Attending Physician: KOBE HAMMONDS DO Chief Complaint The patient is a 52-year-old female admitted with a reason for visit of Abd Pain. Source: Patient Exam Limitations: No limitations Timing/Duration: Day(s) (4) Severity: Severe History of Present Illness PRIMARY CARE PROVIDER: Reanna Yeager CHIEF COMPLAINT: Pain in stomach HISTORY OF PRESENT ILLNESS: This is a 52-year-old postmenopausal female with past medical history of hypertension, hyperlipidemia, GERD, pancreatitis, bronchitis, seasonal allergies, who presented to the [facility] ED today for gradually worsening abdominal pain. States that her abdominal pain began on Monday and was light pain that was intermittent which she took Tylenol for. This did help the pain. Then, on Monday, the patient started having intermittent abdominal pain again but this time, it became steadier and more constant. She had tried Tylenol several times without relief. States that this brought tears to her eyes and she came to the emergency department on Monday evening. States that at the emergency department , she was found to have a UTI and was discharged with pain medications and an antibiotic (ciprofloxacin and Morrison 5/325) which she was compliant with yesterday and today. However, she had no relief from the medications. States that her pain got worse yesterday and this morning. She went to her PCP Reanna Guadarrama who recommended for her to come to the ED for further evaluation. States that her abdominal pain initially was 9/10 in intensity, located in the left side of her abdomen, radiated to her left side of her back, and was a constant sharp steady pain. Was given Toradol in the ED today, which brought the pain down to a 6-1/2-7 out of 10 in intensity. States that she has had pain like this before last year which was found to be pancreatitis, was kept in the hospital for one day, and the next day, she was let go. She states that she seems to feel that this is a recurrence of that type of pain. States that she has not had any exposure to new foods or had tried any food that was different. States that she stays away from Fridays. States that once in a while , she will cheat and eat fatty foods, but she had not recently done so prior to Monday. States she has not been to any restaurants recently, has had no sick contacts, and has had no recent travel. She denies fevers, chills, chest pain, shortness of breath, dizziness, headache , cough, runny nose, sore throat, nausea, vomiting, diarrhea, hematochezia, hematuria, urinary frequency, dysuria, urinary urgency, swelling, or pain anywhere, weakness, fatigue. Admits to vomiting on Monday if she should after she had gotten home from the emergency department but states that this could have been a side effect from one of the medications he was given in the ED the. Admits to abdominal pain -10/31-05/08 in intensity as above. ALLERGIES: No known drug allergies PAST MEDICAL HISTORY: Hypertension Hyperlipidemia Diverticulosis Pancreatitis GERD Bronchitis Seasonal allergies Postmenopause PAST SURGICAL HISTORY: D&C: Found and removed scar tissue Colonoscopy in [place] by Dr. Rojas: Diverticulosis, placed on high fiber diet. Orthopedic surgery with scar tissue removed left ankle SOCIAL HISTORY: Lives in housing unit presented 35-year-old son. Only has one son. 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 [employer] History of TB or asbestos No pets Has received flu shot this season No sick contacts No recent travel No recent dining out at restaurants FAMILY HISTORY: Father: COPD, coronary artery disease, hypertension, hypercholesterolemia, NV at age 44 Mother: Diabetes mellitus, hypertension, hypercholesterolemia, Parkinson's disease worst stage, NV at age 44 Siblings: 55-year-old sister with hypertension, hypercholesterolemia, and NV at age 44; 2 other sisters at age 43 and 53 that have hypertension hypercholesterolemia 35-year-old son: Hypertension, bipolar disorder, hypercholesterolemia, learning disability CODE STATUS: Full code REVIEW OF SYSTEMS: All review of systems are negative except for those as stated in HPI above. PHYSICAL EXAMINATION: Initial ED Vitals: T: 98, BP: 192/79, RR: 16, P: 82, O2 Saturation: 98% room air Most Recent Vitals: T: 97.9, BP: 138/65, RR: 16, P: 71, O2 Saturation: 95% room air General: Pleasant and cooperative obese female lying comfortably in bed. Nontoxic and [id number]. In no acute distress. HEENT: Head: normocephalic, atraumatic. Eyes: sclera are nonicteric. Nose: No external lesions Neck: Supple. No cervical lymphadenopathy appreciated bilaterally. No thyromegaly. Respiratory: clear to auscultation bilaterally with no wheezes, rales, or rhonchi. Cardiovascular: regular rate and rhythm, with no murmurs, rubs or gallops. Abdomen: soft, nondistended, no hepatosplenomegaly appreciated. Bowel sounds present. +Tenderness to light/deep palpation of left upper quadrant, left lower quadrant with no rebound or guarding. (-) Zheng's sign, obturator's sign, psoas sign. Extremities: 5/5 strength in upper and lower extremities bilaterally, no swelling in either lower extremity bilaterally Genitourinary: + mild CVA tenderness bilaterally. Neurological: No focal neurologic deficits appreciated bilaterally] Integumentary: skin free from rashes, lesions, abrasions Vascular: +2 radial pulses palpable bilaterally. LABORATORY DATA: Unremarkable With blood cell count 6.8 Hemoglobin 14.8 Neut percent auto: 68.2 Lymphocyte percent auto: 22.1 Lactic acid: Pending AST: 23 ALT: 39 Alkaline phosphatase: 91 Albumin: 4.2 Lipase: 151 HCG quantitative: 6 MICROBOIOLOGY: Urinalysis and urine cultures pending. RADIOLOGY: CT scan of the abdomen and pelvis with IV and oral contrast: No acute intra- abdominal or pelvic pathology appreciated. No free fluid. No adenopathy. Small hiatal hernia. Scattered sigmoid diverticula without acute diverticulitis. Hepatosteatosis. Acute Abdominal Series Abdomen, Flat/Upright, PA Chest: Negative for any acute abnormalities in the chest or abdomen by plain film. No dilated loops or air- fluid levels. No mass or free air. Bones without acute finding. No abnormal calcification. Pelvic and endovaginal probe ultrasound: Uterus anteverted, not enlarged and was somewhat heterogeneous myometrium without discrete mass. There is a thin endometrial stripe at 2.1 mm without fluid in the endometrial cavity. Trace fluid in the endocervical canal and nabothian cyst. Ovaries are normal size for postmenopausal patient with normal blood flow and no mass or adjacent fluid. Normal blood flow to both. ASSESSMENT: 52-year-old female with a past medical history of pancreatitis, hypertension, hyperlipidemia, GERD, presenting for acute onset of left sided abdominal pain which radiates to the left side of her back. Differential includes constipation versus diverticulosis versus recent questionable UTI versus pyelonephritis. PLAN: Acute left-sided abdominal pain possibly 2/2 Constipation vs. Diverticulosis vs. UTI/Pyelonephritis: [facility]. We'll allow for high fiber and low sodium diet due to medical history of hypertension and diverticulosis. We'll give a bowel prep with Colace, milk of magnesia, and a half a bottle of magnesium citrate at this point in time. Possible that abdominal pain is secondary to constipation. Pain control with Percocet 5/325 mg every 4 hours when necessary pain and acetaminophen 650 mg every 4 hours when necessary pain/ fever. ? Recent UTI: Upon review of previous urinalysis at prior ED visit, UTI seems unlikely and patient is asymptomatic and has no urinary complaints. We'll discontinue antibiotic at this point in time. Recheck a urinalysis and urine cultures today as patient did have some mild CVA tenderness bilaterally. Slightly elevated hCG: Possibly equivocal Diverticulosis: Have started on a high-fiber diet and bowel prep is to be given. ? Fatty liver disease: Hepatosteatosis was noted on CT of the abdomen and pelvis done today. Will place on low fat diet. Hypertension: Continue metoprolol 25 mg daily at bedtime GERD: Continue omeprazole 20 mg daily at bedtime Hyperlipidemia: Continue simvastatin 10 mg daily at bedtime We'll continue home medications. DVT prophylaxis: Lovenox 40 mg subcutaneous daily FULL CODE STATUS Immunizations as per protocol Dispo: Observe overnight, try some bowel prep, likely discharged home tomorrow a.m. Home Medications Scheduled (Flonase Allergy Relief) 50 Mcg/Act Spr 2 SPRAYS NA BID (Reported) Cetirizine HCl (Cetirizine HCl) 10 Mg Tab 10 MG PO QHS (Reported) Ciprofloxacin HCl (Ciprofloxacin HCl) 500 Mg Tab 500 MG PO BID (Reported) FILLED 01/25 FOR 7 DAYS Metoprolol Succinate (Metoprolol Succinate ER) 25 Mg Tab 25 MG PO QHS (Reported ) Omeprazole (Omeprazole) 20 Mg Cap 20 MG PO QHS (Reported) Simvastatin (Simvastatin) 10 Mg Tab 10 MG PO QHS (Reported) STOPPED WHILE ON CIPRO Scheduled PRN Albuterol Sulfate (Proventil Hfa) 167 Puff/6.7 Gm Aers 2 PUFFS INH QID PRN PRN SHORTNESS OF BREATH (Reported) Oxycodone/Acetaminophen (Percocet 5MG/325MG Tablet) 1 Tab Tab 1 TAB PO Q4HP PRN PRN MODERATE PAIN (PS 5-7) Allergies Coded Allergies: No Known Allergies (Unverified , 06/04/15) Vital Signs As above. Laboratory Data Labs 24H Laboratory Tests 2 01/26/17 11:27: Aspartate Amino Transf (AST/SGOT) 23, Alanine Aminotransferase (ALT/SGPT) 39, Alkaline Phosphatase 91, Total Bilirubin 0.4#, Direct Bilirubin 0.1, Albumin 4.1 , Albumin/Globulin Ratio 1.37, Anion Gap 4L, White Blood Count 6.8, Red Blood Count 4.88, Hemoglobin 14.8, Hematocrit 46.1, Mean Corpuscular Volume 94.3, Mean Corpuscular Hemoglobin 30.3, Mean Corpuscular Hemoglobin Concent 32.1, Red Cell Distribution Width 12.6, Platelet Count 360, Neutrophils (%) (Auto) 68.2H, Lymphocytes (%) (Auto) 23.1L, Monocytes (%) (Auto) 4.5, Eosinophils (%) (Auto) 2.3, Basophils (%) (Auto) 0.8, Neutrophils # (Auto) 4.7, Lymphocytes # (Auto) 1.6, Monocytes # (Auto) 0.3, Eosinophils # (Auto) 0.2, Basophils # (Auto) 0.1, Calcium Level 9.5, Glomerular Filtration Rate > 60.0, Human Chorionic Gonadotropin, Quant 6, Large Unclassified Cells # 0.1, Large Unclassified Cells % 1.1, Lipase 151, Total Protein 7.1 01/26/17 16:16: Lactic Acid Level 1.0 CBC/BMP Laboratory Tests 01/26/17 11:27 Red Blood Count 4.88, Mean Corpuscular Volume 94.3, Mean Corpuscular Hemoglobin 30.3, Mean Corpuscular Hemoglobin Concent 32.1, Red Cell Distribution Width 12.6 , Neutrophils (%) (Auto) 68.2 H, Lymphocytes (%) (Auto) 23.1 L, Monocytes (%) ( Auto) 4.5, Eosinophils (%) (Auto) 2.3, Basophils (%) (Auto) 0.8, Neutrophils # ( Auto) 4.7, Lymphocytes # (Auto) 1.6, Monocytes # (Auto) 0.3, Eosinophils # (Auto ) 0.2, Basophils # (Auto) 0.1 Plan / VTE VTE Prophylaxis Ordered?: Yes (lovenox 40 mg sc daily) GME ATTESTATION GME ATTESTATION My preceptor for this patient encounter was Dr. Kobe Hammonds, and was physically present in the building during the encounter and was fully available. As needed, all aspects of the patient interview, examination, medical decision making process, and medical care plan development were reviewed and approved by the preceptor. Preceptor is aware and concurs with the plan as stated in the body of this note and will attest to such by his/her cosignature. ATTENDING NOTE Attending note: patient seen and examined independently. Discussed finding and treatment plan as outlined above. ALEIDA FELIPETAWANA OGME-1 Jan 26, 2017 19:59 KOBE HAMMONDS DO Jan 28, 2017 18:00 My preceptor for this patient encounter was Dr. Kobe Hammonds, and was physically present in the building during the encounter and was fully available. As needed, all aspects of the patient interview, examination, medical decision making process, and medical care plan development were reviewed and approved by the preceptor. Preceptor is aware and concurs with the plan as stated in the body of this note and will attest to such by his/her cosignature. FELIPETAWANA SEBASTIAN OGME-1 Jan 26, 2017 19:59
[2017-01-26 20:25] VITALS: BP 156/74
[2017-01-26] MEDS: DOCUSATE SODIUM 100 MG CAP PO SCH (21:00)
[2017-01-26] MEDS ORDERED: METOPROLOL SUCC *XL* 25MG TAB (TopROL *XL*) PO SCH (21:00)
[2017-01-26] MEDS ORDERED: SIMVASTATIN 10 MG TAB PO SCH (21:00)
[2017-01-26] MEDS ORDERED: CETIRIZINE (ZyrTEC) 10 MG TAB PO SCH (21:00)
[2017-01-26] MEDS ORDERED: OMEPRAZOLE 20 MG CAP PO SCH (21:00)
[2017-01-26 21:01] VITALS: BP 156/74
[2017-01-26] MEDS: FLUTICASONE PROP 0.05% NASAL SPRAY 16 GM (FLONASE) SCH (21:37)
[2017-01-27 06:00] VITALS: BP 116/60
[2017-01-27 06:35] LABS: MEAN CORPUSCULAR HEMOGLOBIN 30.8 pg (27.0-33.0); MEAN CORPUSCULAR HGB CONC 33.7 g/dl (32.0-36.5); MEAN CORPUSCULAR VOLUME 91.4 fl (80.0-96.0); RED CELL DISTRIBUTION WIDTH 12.8 % (11.5-14.5)
[2017-01-27 06:56] LABS: ANION GAP 9 MEQ/L (8-16); BLOOD UREA NITROGEN 8 MG/DL (7-18); CARBON DIOXIDE LEVEL 29 MEQ/L (21-32); CHLORIDE LEVEL 106 MEQ/L (98-107); CREATININE FOR GFR 0.84 MG/DL (0.55-1.02); GLOMERULAR FILTRATION RATE > 60.0 (>51); GLUCOSE, FASTING 94 MG/DL (70-105); POTASSIUM SERUM 3.7 MEQ/L (3.5-5.1); SODIUM LEVEL 144 MEQ/L (136-145)
[2017-01-27 07:19] LABS: MICROSCOPIC INDICATED? NO (NO)
[2017-01-27] MEDS: DOCUSATE SODIUM 100 MG CAP PO SCH (08:08)
[2017-01-27] MEDS: FLUTICASONE PROP 0.05% NASAL SPRAY 16 GM (FLONASE) SCH (08:09)
[2017-01-27] MEDS ORDERED: ENOXAPARIN 40 MG/0.4 ML SYRINGE (J1650) SC SCH (09:00)
[2017-01-27] MEDS ORDERED: PERCOCET PO (11:40)
--- NOTE | 2017-01-27 16:29 | ECGEPIP ---
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
--- NOTE | 2017-01-27 21:49 | DSES ---
DATE OF ADMISSION: 01/26/2017 DATE OF DISCHARGE: 01/27/2017 PRIMARY CARE PROVIDER: Nanette Guadarrama HISTORY: This is a 52-year-old female patient who presented yesterday to [facility] and was advised to present to the emergency room with gradually worsening left upper quadrant abdominal pain that began on Monday and progressively worsened. She had been seen in the emergency room without any acute findings, although was noted to have an hCG of 6. She does have a history of pancreatitis, although this seems to be unrelated to a pancreatitis flare. She was sent home with [place] and Cipro from her first emergency room visit. The [place] was not alleviating the pain, which prompted her returning to the emergency room. She has had normal complete blood count (CBC), normal comprehensive metabolic panel (CMP) and basic metabolic panel (BMP). Her lipase has also been normal. Thyroid-stimulating hormone (TSH) is normal. Human chorionic gonadotropin (hCG) is 6. Tumor marker hCG is also 6. Imaging reveals a pelvic ultrasound suggestive of an anteverted, nonenlarged uterus with a heterogeneous myometrium without a discrete mass, a thin endometrial stripe about 2.1 mm without fluid in the endometrial cavity. Trace fluid in the endometrial canal and a nabothian cyst. Ovaries are normal size for a postmenopausal patient with normal blood flow. No mass is noted. Abdominal x-ray is benign. Abdominal CT is without any intra-abdominal or pelvic acute pathology. No free fluid. Small hiatal hernia is noted. Scattered sigmoid diverticula without acute diverticulitis. Hepatomelanosis is noted. Patient has had improved pain control with Percocet. She has morphine available, although has not used this. She was given Toradol in the emergency room. She had a good breakfast this morning. She has been up on her feet and feels steady on her feet. Her left upper quadrant pain is steadily improving, although the etiology of this is unclear at this point. I did discuss with her the abnormal hCG as well as the pelvic ultrasound and recommended that she see gynecology in the outpatient setting. I have requested that this be arranged at time of discharge from the hospital. Patient is aware of this. She does not currently follow with gynecology. She does not report being sexually active. DISCHARGE DIAGNOSES: 1. Acute intractable left upper quadrant abdominal pain, likely secondary to constipation, which is resolved. 2. Diverticulosis. 3. Fatty liver disease. 4. Abnormal hCG. 5. Abnormal pelvic ultrasound with a 2.1 mm endometrial stripe. DISCHARGE MEDICATIONS: - oxycodone/acetaminophen 5/325 one tablet every 4 hours as needed for pain - albuterol sulfate HFA two puffs inhaled every 6 hours as needed for shortness of breath - cetirizine 10 mg by mouth at bedtime - Cipro 500 mg by mouth twice a day - Flonase two sprays intranasally twice a day - metoprolol succinate ER 25 mg by mouth at bedtime - omeprazole 20 mg by mouth at bedtime - simvastatin 10 mg by mouth at bedtime DISCHARGE PLAN: Will be to followup with Nanette Guadarrama in 3-5 days. Followup with gynecology as soon as possible. Activity should be as tolerated. Diet should be regular.
== END 2017-01-27 17:14 | disposition home or self-care (01) ==
LOC: M ED 13:26 → M ED INP 18:17 → M MSPAV 20:25
PROVIDERS: ADMIT Hospitalist; ATTEND Family Medicine
DX: R10.12 Left upper quadrant pain (principal); K59.00 Constipation, unspecified; K57.30 Diverticulosis of large intestine without perforation or abscess without bleeding; I10 Essential (primary) hypertension; E78.4 Other hyperlipidemia; K76.0 Fatty (change of) liver, not elsewhere classified; Z79.899 Other long term (current) drug therapy

== ENCOUNTER → 2017-02-27 | Outpatient (CLI) | payer OTHER ==
[~2017-02-27] MED LIST changes: +ALBU17IN2 INH; +CIPR500T3 PO; +FLON1SPR; +HYDR-3713 PO; +METO25TA74 PO; +PERCOCET PO; +PROA1AER; +SIMV10TA2; +SIMV10TA2 PO
== END ==
LOC: M LAB 14:27
PROVIDERS: ATTEND Obstetrics & Gynecology
DX: R79.89 Other specified abnormal findings of blood chemistry (principal)

== ENCOUNTER → 2017-06-19 | Outpatient (REF) | payer OTHER ==
[~2017-06-19] MED LIST changes: +CIPR-249 PO; -CIPR500T89 PO; -METO-207 PO; +METO1TAB32 PO; +METO1TAB7 PO; -METO25TA74 PO; -PROA1AER; +PROAAER10
[2017-06-19 11:29] LABS: BASO # 0.1 K/mm3 (0.0-0.2); BASO % 1.1 % (0.0-1.0); EOS # 0.2 K/mm3 (0.0-0.50); EOS % 3.1 % (0.0-3.0); LARGE UNSTAINED CELL # 0.1 K/mm3 (0.0-0.4); LARGE UNSTAINED CELL % 1.4 % (0.0-4.0); LYMPH # 2.2 K/mm3 (1.5-4.5); LYMPH % 33.3 % (24.0-44.0); MEAN CORPUSCULAR VOLUME 93.8 fl (80.0-96.0); MONO # 0.4 K/mm3 (0.0-0.8); MONO % 6.3 % (0.0-5.0); NEUTROPHILS # 3.4 K/mm3 (1.8-7.7); NEUTROPHILS % 54.7 % (36.0-66.0); PLATELET COUNT, AUTOMATED 299 k/mm3 (150-450); RED CELL DISTRIBUTION WIDTH 12.7 % (11.5-14.5); WHITE BLOOD COUNT 6.2 K/mm3 (4.0-10.0)
[2017-06-19 12:30] LABS: ALBUMIN 3.9 GM/DL (3.2-5.2); ALKALINE PHOSPHATASE 80 U/L (45-117); ALT/SGPT 28 U/L (12-78); ANION GAP 7 MEQ/L (8-16); AST/SGOT 17 U/L (15-37); BILIRUBIN,TOTAL 0.4 MG/DL (0.2-1.0); BLOOD UREA NITROGEN 17 MG/DL (7-18); CARBON DIOXIDE LEVEL 28 MEQ/L (21-32); CHLORIDE LEVEL 109 MEQ/L (98-107); CHOLESTEROL LEVEL 206 MG/DL (<200); CREATININE FOR GFR 0.86 MG/DL (0.55-1.02); GLOMERULAR FILTRATION RATE > 60.0 (>51); GLUCOSE, FASTING 91 MG/DL (70-105); POTASSIUM SERUM 3.9 MEQ/L (3.5-5.1); SODIUM LEVEL 144 MEQ/L (136-145); TOTAL PROTEIN 6.9 GM/DL (6.4-8.2); TRIGLYCERIDES LEVEL 145 MG/DL (<150)
== END ==
LOC: M SFHCPLAZ 07:49
PROVIDERS: ATTEND Nurse Practitioner Family
DX: I10 Essential (primary) hypertension (principal); E78.5 Hyperlipidemia, unspecified

== ENCOUNTER → 2017-09-11 | Outpatient (REF) | payer OTHER | LOC: M SFHCPLAZ 12:56 | PROVIDERS: ATTEND Nurse Practitioner Family | DX: J02.9 Acute pharyngitis, unspecified (principal) ==

== ENCOUNTER → 2017-10-20 | Outpatient (REF) | payer OTHER | LOC: M SFHCPLAZ 15:20 | PROVIDERS: ATTEND Nurse Practitioner Family | DX: J02.9 Acute pharyngitis, unspecified (principal) ==

== ENCOUNTER → 2017-10-26 | Outpatient (REF) | payer OTHER ==
[2017-10-26 11:01] LABS: BASO % 0.3 % (0.0-1.0); IMMATURE GRANULOCYTE % 0.4 % (0-0); LYMPH # 0.9 10^3/uL (1.5-4.5); LYMPH % 11.9 % (24.0-44.0); MEAN CORPUSCULAR HGB CONC 33.6 g/dl (32.0-36.5); MEAN CORPUSCULAR VOLUME 89.5 fl (80.0-96.0); MONO # 0.4 10^3/uL (0.0-0.8); MONO % 5.6 % (0.0-5.0); NEUTROPHILS % 81.8 % (36.0-66.0); PLATELET COUNT, AUTOMATED 393 10^3/uL (150-450); RED CELL DISTRIBUTION WIDTH 13.2 % (11.5-14.5); WHITE BLOOD COUNT 7.4 10^3/uL (4.0-10.0)
[2017-10-26 11:16] LABS: ANION GAP 8 MEQ/L (8-16); BLOOD UREA NITROGEN 9 MG/DL (7-18); CALCIUM LEVEL 8.5 MG/DL (8.5-10.1); CARBON DIOXIDE LEVEL 30 MEQ/L (21-32); CHLORIDE LEVEL 105 MEQ/L (98-107); CREATININE FOR GFR 0.74 MG/DL (0.55-1.02); GLOMERULAR FILTRATION RATE > 60.0 (>51); GLUCOSE, FASTING 122 MG/DL (70-105); POTASSIUM SERUM 3.5 MEQ/L (3.5-5.1); SODIUM LEVEL 143 MEQ/L (136-145)
== END ==
LOC: M SFHCPLAZ 09:02
DX: R05 Cough (principal)
CPT/HCPCS: 36415

== ENCOUNTER → 2017-10-26 | Outpatient (CLI) | payer OTHER | LOC: M RAD 10:04 | DX: R05 Cough (principal) | CPT/HCPCS: 71020 ==

== ENCOUNTER → 2018-01-10 | Outpatient (CLI) | payer OTHER | LOC: M RAD 13:57 | DX: J02.9 Acute pharyngitis, unspecified (principal) | CPT/HCPCS: 70486 ==

== ENCOUNTER → 2018-01-10 | Outpatient (CLI) | payer OTHER | LOC: M CARPUL 13:25 | DX: J45.909 Unspecified asthma, uncomplicated (principal); R05 Cough | CPT/HCPCS: 94010 ==

== ENCOUNTER → 2018-02-19 | Outpatient (CLI) | payer OTHER | LOC: M RAD 15:20 | DX: J32.0 Chronic maxillary sinusitis (principal) | CPT/HCPCS: 70486 ==

== ENCOUNTER 2018-03-23 20:08 | Emergency (ER) | payer OTHER ==
[2018-03-23] MEDS: NORCO 5/325MG TABLET (BULK FOR ED) PO (22:01)
== END 2018-03-23 22:19 | disposition home or self-care (01) ==
LOC: M ED 20:08
DX: S50.11XA Contusion of right forearm, initial encounter (principal); S09.90XA Unspecified injury of head, initial encounter; W01.0XXA Fall on same level from slipping, tripping and stumbling without subsequent striking against object, initial encounter; Y92.9 Unspecified place or not applicable; Y93.9 Activity, unspecified; Y99.0 Civilian activity done for income or pay; I10 Essential (primary) hypertension; J44.9 Chronic obstructive pulmonary disease, unspecified; Z79.899 Other long term (current) drug therapy
CPT/HCPCS: 73090

== ENCOUNTER → 2018-06-25 | Outpatient (REF) | payer OTHER ==
[2018-06-25 13:18] LABS: BASO # 0.1 10^3/uL (0.0-0.2); BASO % 1.6 % (0.0-1.0); EOS # 0.2 10^3/uL (0.0-0.50); EOS % 3.2 % (0.0-3.0); HEMATOCRIT 44.4 % (36.0-47.0); HEMOGLOBIN 14.8 g/dl (12.0-15.5); LYMPH # 2.2 10^3/uL (1.5-4.5); LYMPH % 39.2 % (24.0-44.0); MEAN CORPUSCULAR HEMOGLOBIN 30.5 pg (27.0-33.0); MEAN CORPUSCULAR HGB CONC 33.3 g/dl (32.0-36.5); MEAN CORPUSCULAR VOLUME 91.4 fl (80.0-96.0); MONO # 0.4 10^3/uL (0.0-0.8); MONO % 7.3 % (0.0-5.0); NEUTROPHILS # 2.7 10^3/uL (1.8-7.7); NEUTROPHILS % 48.7 % (36.0-66.0); PLATELET COUNT, AUTOMATED 303 10^3/uL (150-450); RED BLOOD COUNT 4.86 10^6/uL (4.00-5.40); RED CELL DISTRIBUTION WIDTH 13.3 % (11.5-14.5); WHITE BLOOD COUNT 5.6 10^3/uL (4.0-10.0)
[2018-06-25 13:49] LABS: ALBUMIN 3.8 GM/DL (3.2-5.2); ALBUMIN/GLOBULIN RATIO 1.19 (1.00-1.93); ALKALINE PHOSPHATASE 77 U/L (45-117); ALT/SGPT 36 U/L (12-78); ANION GAP 7 MEQ/L (8-16); AST/SGOT 26 U/L (7-37); BILIRUBIN,TOTAL 0.5 MG/DL (0.2-1.0); BLOOD UREA NITROGEN 11 MG/DL (7-18); CALCIUM LEVEL 8.7 MG/DL (8.5-10.1); CARBON DIOXIDE LEVEL 27 MEQ/L (21-32); CHLORIDE LEVEL 113 MEQ/L (98-107); CHOLESTEROL LEVEL 182 MG/DL (<200); CREATININE FOR GFR 0.81 MG/DL (0.55-1.30); FREE T4 1.01 NG/DL (0.76-1.46); GLOMERULAR FILTRATION RATE > 60.0 (>51); GLUCOSE, FASTING 90 MG/DL (70-100); HDL CHOLESTEROL 54 MG/DL (>40); LDL CHOLESTEROL 108.2 MG/DL (<100); NON-HDL-C 128 MG/DL; POTASSIUM SERUM 3.8 MEQ/L (3.5-5.1); SODIUM LEVEL 147 MEQ/L (136-145); TRIGLYCERIDES LEVEL 99 MG/DL (<150)
[2018-06-25 14:05] LABS: MALB URINE SIEMENS 15.9 MG/L; MAU/CREAT RATIO 8.5 MCG/MG (0.0-30.0)
[2018-06-25 14:36] LABS: ESTIMATED AVERAGE GLUCOSE 123 MG/DL (60-110); HEMOGLOBIN A1c 5.9 %
== END ==
LOC: M SFHCPLAZ 10:29
DX: I10 Essential (primary) hypertension (principal); E78.5 Hyperlipidemia, unspecified; Z13.1 Encounter for screening for diabetes mellitus

== ENCOUNTER 2018-08-02 11:46 | Emergency (ER) | payer OTHER ==
[2018-08-02] MEDS: ADACEL/BOOSTRIX VACCINE (DIPHTH/PERTUSS/ACELL/TETANUS)0.5ML SYR (90715) IM (12:25)
== END 2018-08-02 12:47 | disposition home or self-care (01) ==
LOC: M ED 11:46
DX: T23.031A Burn of unspecified degree of multiple right fingers (nail), not including thumb, initial encounter (principal); X10.1XXA Contact with hot food, initial encounter; Y92.89 Other specified places as the place of occurrence of the external cause; Y99.0 Civilian activity done for income or pay; I10 Essential (primary) hypertension; Z79.899 Other long term (current) drug therapy
CPT/HCPCS: 90715

== ENCOUNTER → 2018-10-01 | Outpatient (CLI) | payer OTHER | LOC: M WHC 14:11 | DX: Z12.31 Encounter for screening mammogram for malignant neoplasm of breast (principal); Z78.0 Asymptomatic menopausal state | CPT/HCPCS: 77067 ==

== ENCOUNTER → 2019-07-16 | Outpatient (REF) | payer OTHER ==
[~2019-07-16] MED LIST changes: +BACIOIN5 OP; +HYDR-3715 PO; -NORCOTAB PO; -OMEP20CA3 PO; +OMEP20CA4 PO; +PERC5TAB12 PO
[2019-07-16 20:20] LABS: CREATININE, URINE 52.3 MG/DL; MALB URINE SIEMENS 31.7 MG/L; MAU/CREAT RATIO 60.6 MCG/MG (0.0-30.0)
[2019-07-16 20:25] LABS: ALBUMIN 4.2 GM/DL (3.2-5.2); ALT/SGPT 28 U/L (12-78); BILIRUBIN,TOTAL 0.3 MG/DL (0.2-1.0); BLOOD UREA NITROGEN 6 MG/DL (7-18); CALCIUM LEVEL 9.3 MG/DL (8.5-10.1); CARBON DIOXIDE LEVEL 27 MEQ/L (21-32); CHLORIDE LEVEL 106 MEQ/L (98-107); CHOLESTEROL LEVEL 191 MG/DL (<200); CHOLESTEROL RISK RATIO 3.745 (<5); CREATININE FOR GFR 0.78 MG/DL (0.55-1.30); GLOMERULAR FILTRATION RATE > 60.0 (>51); GLUCOSE, FASTING 77 MG/DL (70-100); HDL CHOLESTEROL 51 MG/DL (>40); LDL CHOLESTEROL 87 MG/DL (<100); NON-HDL-C 140 MG/DL; POTASSIUM SERUM 3.6 MEQ/L (3.5-5.1); SODIUM LEVEL 142 MEQ/L (136-145); TOTAL PROTEIN 7.1 GM/DL (6.4-8.2); TRIGLYCERIDES LEVEL 264 MG/DL (<150)
== END ==
LOC: M SFHCPLAZ 14:45
PROVIDERS: ATTEND Nurse Practitioner Family
DX: E78.5 Hyperlipidemia, unspecified (principal); I10 Essential (primary) hypertension

== ENCOUNTER → 2020-04-21 | Outpatient (REF) | payer OTHER, MEDICAID ==
[~2020-04-21] MED LIST changes: +OMEP1CAP73 PO; -OMEP20CA4 PO; -SIMV10TA2; -SIMV10TA2 PO; +SIMV10TA21; +SIMV10TA21 PO
== END ==
LOC: M LAB REF 17:56
PROVIDERS: ATTEND Nurse Practitioner Family
DX: Z12.4 Encounter for screening for malignant neoplasm of cervix (principal); N95.2 Postmenopausal atrophic vaginitis

== ENCOUNTER → 2020-04-30 | Outpatient (REF) | payer MEDICAID, OTHER ==
[2020-04-30 12:35] LABS: BASO # 0.1 10^3/uL (0.0-0.2); BASO % 1.3 % (0.0-1.0); EOS # 0.2 10^3/uL (0.0-0.5); EOS % 2.4 % (0.0-3.0); HEMATOCRIT 42.6 % (36.0-47.0); HEMOGLOBIN 13.9 g/dl (12.0-15.5); LYMPH # 3.1 10^3/uL (1.5-5.0); LYMPH % 44.8 % (24.0-44.0); MEAN CORPUSCULAR HGB CONC 32.6 g/dl (32.0-36.5); MEAN CORPUSCULAR VOLUME 94.9 fl (80.0-96.0); MONO # 0.5 10^3/uL (0.0-0.8); MONO % 6.9 % (0.0-5.0); NEUTROPHILS # 3.1 10^3/uL (1.5-8.5); NEUTROPHILS % 44.5 % (36.0-66.0); PLATELET COUNT, AUTOMATED 318 10^3/uL (150-450); RED BLOOD COUNT 4.49 10^6/uL (4.00-5.40); WHITE BLOOD COUNT 6.9 10^3/uL (4.0-10.0)
[2020-04-30 12:47] LABS: ALBUMIN 3.8 GM/DL (3.2-5.2); ALT/SGPT 31 U/L (12-78); BILIRUBIN,TOTAL 0.4 MG/DL (0.2-1.0); BLOOD UREA NITROGEN 8 MG/DL (7-18); CALCIUM LEVEL 9.2 MG/DL (8.5-10.1); CARBON DIOXIDE LEVEL 29 MEQ/L (21-32); CHLORIDE LEVEL 108 MEQ/L (98-107); CHOLESTEROL LEVEL 196 MG/DL (<200); CREATININE FOR GFR 0.89 MG/DL (0.55-1.30); GLOMERULAR FILTRATION RATE > 60.0 (>51); GLUCOSE, FASTING 89 MG/DL (70-100); HDL CHOLESTEROL 47 MG/DL (>40); LDL CHOLESTEROL 108 MG/DL (<100); NON-HDL-C 149 MG/DL; POTASSIUM SERUM 3.8 MEQ/L (3.5-5.1); SODIUM LEVEL 143 MEQ/L (136-145); TOTAL PROTEIN 7.3 GM/DL (6.4-8.2); TRIGLYCERIDES LEVEL 204 MG/DL (<150)
[2020-04-30 12:48] LABS: TOTAL 25(OH) VITAMIN D 15.1 NG/ML (30.0-100.0)
[2020-04-30 13:23] LABS: HEMOGLOBIN A1c 6.1 %
== END ==
LOC: M LAB REF 11:42
PROVIDERS: ATTEND Family Medicine
DX: I10 Essential (primary) hypertension (principal)

== ENCOUNTER → 2020-10-29 | Outpatient (REF) | payer OTHER ==
[2020-10-29 13:28] LABS: ALBUMIN 4.3 GM/DL (3.2-5.2); ALT/SGPT 28 U/L (12-78); BILIRUBIN,TOTAL 0.6 MG/DL (0.2-1.0); BLOOD UREA NITROGEN 10 MG/DL (7-18); CALCIUM LEVEL 9.2 MG/DL (8.5-10.1); CARBON DIOXIDE LEVEL 30 MEQ/L (21-32); CHLORIDE LEVEL 108 MEQ/L (98-107); CHOLESTEROL LEVEL 230 MG/DL (<200); CREATININE FOR GFR 0.79 MG/DL (0.55-1.30); GLOMERULAR FILTRATION RATE > 60.0 (>51); GLUCOSE, FASTING 93 MG/DL (70-100); HDL CHOLESTEROL 63 MG/DL (>40); LDL CHOLESTEROL 148 MG/DL (<100); NON-HDL-C 167 MG/DL; POTASSIUM SERUM 3.9 MEQ/L (3.5-5.1); SODIUM LEVEL 141 MEQ/L (136-145); TOTAL PROTEIN 7.2 GM/DL (6.4-8.2); TRIGLYCERIDES LEVEL 95 MG/DL (<150)
== END ==
LOC: M LAB REF 11:47
PROVIDERS: ATTEND Family Medicine Addiction Medicine
DX: I10 Essential (primary) hypertension (principal); E78.01 Familial hypercholesterolemia; R73.03 Prediabetes; Z12.4 Encounter for screening for malignant neoplasm of cervix

== ENCOUNTER → 2022-08-23 | Outpatient (REF) | payer OTHER ==
[2022-08-23 13:25] LABS: BLOOD UREA NITROGEN 14 MG/DL (7-18); CALCIUM LEVEL 9.6 MG/DL (8.5-10.1); CARBON DIOXIDE LEVEL 25 MEQ/L (21-32); CHLORIDE LEVEL 108 MEQ/L (98-107); GLOMERULAR FILTRATION RATE > 60.0 (>51); GLUCOSE, FASTING 88 MG/DL (70-100); POTASSIUM SERUM 3.3 MEQ/L (3.5-5.1); SODIUM LEVEL 140 MEQ/L (136-145)
== END ==
LOC: M LAB REF 11:47
PROVIDERS: ATTEND Nurse Practitioner Family
DX: E87.6 Hypokalemia (principal)

== ENCOUNTER 2022-09-22 20:17 | Emergency (ER) | payer OTHER ==
[~2022-09-22] VITALS: Ht 152.4 cm; Wt 72.7 kg
[2022-09-22] MEDS ORDERED: ACETAMINOPHEN 325 MG TAB PO ONE (21:20)
[2022-09-22] MEDS ORDERED: OSELTAMIVIR PHOSPHATE 75 MG CAP (TAMIFLU) PO ONE (21:55)
[2022-09-22] MEDS ORDERED: OSEL75CA PO (21:56)
[2022-09-22 22:07] VITALS: BP 137/70
== END 2022-09-22 22:09 | disposition home or self-care (01) ==
LOC: M ED 20:17
DX: J09.X2 Influenza due to identified novel influenza A virus with other respiratory manifestations (principal); I10 Essential (primary) hypertension; E78.5 Hyperlipidemia, unspecified; K21.9 Gastro-esophageal reflux disease without esophagitis; J44.9 Chronic obstructive pulmonary disease, unspecified; M54.50 Low back pain, unspecified; Z79.51 Long term (current) use of inhaled steroids; Z79.899 Other long term (current) drug therapy

== ENCOUNTER → 2022-10-28 | Outpatient (REF) | payer OTHER ==
[~2022-10-28] MED LIST changes: +OSEL75CA PO
[2022-10-28 12:56] LABS: MAGNESIUM LEVEL 1.7 MG/DL (1.8-2.4)
[2022-10-28 13:01] LABS: ALBUMIN 3.7 G/DL (3.2-5.2); ALKALINE PHOSPHATASE 64 U/L (46-116); ALT/SGPT 20 U/L (7.0-40); AST/SGOT 22 U/L (<34); BILIRUBIN,TOTAL 0.2 MG/DL (0.3-1.2); BLOOD UREA NITROGEN 17 MG/DL (9-23); CALCIUM LEVEL 9.1 MG/DL (8.5-10.1); CARBON DIOXIDE LEVEL 28 MMOL/L (20-31); CHLORIDE LEVEL 107 MMOL/L (98-107); CHOLESTEROL LEVEL 169 MG/DL (<200); CREATININE FOR GFR 0.87 MG/DL (0.55-1.30); GLOMERULAR FILTRATION RATE > 60.0 (>51); GLUCOSE, FASTING 104 MG/DL (60-100); HDL CHOLESTEROL 52.8 MG/DL (>40); LDL CHOLESTEROL 89.2 MG/DL (<100); NON-HDL-C 116 MG/DL; POTASSIUM SERUM 3.8 MMOL/L (3.5-5.1); SODIUM LEVEL 142 MMOL/L (136-145); TOTAL PROTEIN 6.6 G/DL (5.7-8.2); TRIGLYCERIDES LEVEL 135 MG/DL (<150)
[2022-10-28 13:37] LABS: HEMOGLOBIN A1c 5.6 % (4.0-6.0)
== END ==
LOC: M LAB REF 11:46
PROVIDERS: ATTEND Nurse Practitioner Family
DX: E87.6 Hypokalemia (principal); E78.01 Familial hypercholesterolemia; R73.03 Prediabetes

== ENCOUNTER → 2022-12-21 | Outpatient (REF) | payer OTHER ==
[2022-12-21 14:28] LABS: ALBUMIN 3.7 G/DL (3.2-5.2); ALKALINE PHOSPHATASE 62 U/L (46-116); ALT/SGPT 20 U/L (7.0-40); AST/SGOT 23 U/L (<34); BILIRUBIN,TOTAL 0.4 MG/DL (0.3-1.2); BLOOD UREA NITROGEN 13 MG/DL (9-23); CALCIUM LEVEL 9.8 MG/DL (8.5-10.1); CARBON DIOXIDE LEVEL 27 MMOL/L (20-31); CHLORIDE LEVEL 105 MMOL/L (98-107); CREATININE FOR GFR 0.92 MG/DL (0.55-1.30); GLOMERULAR FILTRATION RATE > 60.0 (>51); GLUCOSE, FASTING 91 MG/DL (60-100); MAGNESIUM LEVEL 1.9 MG/DL (1.8-2.4); SODIUM LEVEL 141 MMOL/L (136-145)
[2022-12-21 18:44] LABS: TOTAL PROTEIN 6.9 G/DL (5.7-8.2)
== END ==
LOC: M LAB REF 12:32
PROVIDERS: ATTEND Nurse Practitioner Family
DX: E87.6 Hypokalemia (principal)

== ENCOUNTER → 2023-03-15 | Outpatient (REF) | payer OTHER ==
[2023-03-15 14:03] LABS: ALBUMIN 4.1 G/DL (3.2-5.2); ALKALINE PHOSPHATASE 66 U/L (46-116); ALT/SGPT 24 U/L (7.0-40); AST/SGOT 30 U/L (<34); BILIRUBIN,TOTAL 0.3 MG/DL (0.3-1.2); BLOOD UREA NITROGEN 19 MG/DL (9-23); CALCIUM LEVEL 9.9 MG/DL (8.3-10.6); CARBON DIOXIDE LEVEL 28 MMOL/L (20-31); CHLORIDE LEVEL 108 MMOL/L (98-107); CREATININE FOR GFR 0.91 MG/DL (0.55-1.30); GLOMERULAR FILTRATION RATE > 60.0 (>45); GLUCOSE, FASTING 102 MG/DL (74-106); POTASSIUM SERUM 3.7 MMOL/L (3.5-5.1); SODIUM LEVEL 141 MMOL/L (136-145); TOTAL PROTEIN 7.1 G/DL (5.7-8.2)
== END ==
LOC: M LAB REF 12:02
PROVIDERS: ATTEND Nurse Practitioner Family
DX: E87.6 Hypokalemia (principal)

== ENCOUNTER → 2023-05-17 | Outpatient (REF) | payer OTHER ==
[2023-05-17 18:17] LABS: BLOOD UREA NITROGEN 11 MG/DL (9-23); CALCIUM LEVEL 9.2 MG/DL (8.3-10.6); CARBON DIOXIDE LEVEL 30 MMOL/L (20-31); CHLORIDE LEVEL 105 MMOL/L (98-107); CREATININE FOR GFR 0.87 MG/DL (0.55-1.30); GLOMERULAR FILTRATION RATE > 60.0 (>45); GLUCOSE, FASTING 96 MG/DL (74-106); MAGNESIUM LEVEL 1.8 MG/DL (1.8-2.4); POTASSIUM SERUM 3.4 MMOL/L (3.5-5.1); SODIUM LEVEL 143 MMOL/L (136-145)
== END ==
LOC: M LAB REF 17:42
PROVIDERS: ATTEND Nurse Practitioner Family
DX: E87.6 Hypokalemia (principal)

== ENCOUNTER → 2023-06-05 | Outpatient (REF) | payer OTHER ==
[2023-06-05 12:45] LABS: BLOOD UREA NITROGEN 8 MG/DL (9-23); CALCIUM LEVEL 9.8 MG/DL (8.3-10.6); CARBON DIOXIDE LEVEL 27 MMOL/L (20-31); CHLORIDE LEVEL 107 MMOL/L (98-107); CREATININE FOR GFR 0.94 MG/DL (0.55-1.30); GLOMERULAR FILTRATION RATE > 60.0 (>45); GLUCOSE, FASTING 89 MG/DL (74-106); MAGNESIUM LEVEL 1.9 MG/DL (1.8-2.4); POTASSIUM SERUM 3.9 MMOL/L (3.5-5.1); SODIUM LEVEL 143 MMOL/L (136-145)
== END ==
LOC: M LAB REF 11:35
PROVIDERS: ATTEND Nurse Practitioner Family
DX: E87.6 Hypokalemia (principal)

== ENCOUNTER → 2023-10-05 | Outpatient (REF) | payer OTHER ==
[2023-10-05 14:35] LABS: BLOOD UREA NITROGEN 10 MG/DL (9-23); CALCIUM LEVEL 9.5 MG/DL (8.3-10.6); CARBON DIOXIDE LEVEL 28 MMOL/L (20-31); CHLORIDE LEVEL 107 MMOL/L (98-107); CREATININE FOR GFR 0.96 MG/DL (0.55-1.30); GLOMERULAR FILTRATION RATE > 60.0 (>45); GLUCOSE, FASTING 58 MG/DL (74-106); POTASSIUM SERUM 3.9 MMOL/L (3.5-5.1); SODIUM LEVEL 144 MMOL/L (136-145)
== END ==
LOC: M LAB REF 12:47
PROVIDERS: ATTEND Nurse Practitioner Family
DX: E87.6 Hypokalemia (principal)

== ENCOUNTER → 2024-01-22 | Outpatient (REF) | payer OTHER ==
[2024-01-22 18:46] LABS: ALBUMIN 3.6 G/DL (3.2-5.2); BILIRUBIN,TOTAL 0.3 MG/DL (0.3-1.2); CALCIUM LEVEL 9.3 MG/DL (8.3-10.6); CHOLESTEROL RISK RATIO 4.14 (<5); CREATININE FOR GFR 1.02 MG/DL (0.55-1.30); GLOMERULAR FILTRATION RATE 58.7 (>45); HDL CHOLESTEROL 64.1 MG/DL (>40); LDL CHOLESTEROL 167.5 MG/DL (<100); MAGNESIUM LEVEL 1.8 MG/DL (1.8-2.4); NON-HDL-C 201.9 MG/DL; POTASSIUM SERUM 4.2 MMOL/L (3.5-5.1); THYROID STIMULATING HORMONE 2.599 uIU/ML (0.55-4.78); TOTAL 25(OH) VITAMIN D 30.7 NG/ML (20.0-100.0); TOTAL PROTEIN 6.8 G/DL (5.7-8.2)
[2024-01-22 18:56] LABS: BASO # 0.1 10^3/uL (0.0-0.2); BASO % 1.1 % (0.0-1.0); EOS # 0.3 10^3/uL (0.0-0.5); EOS % 3.7 % (0.0-3.0); HEMATOCRIT 39.3 % (36.0-47.0); HEMOGLOBIN 12.9 g/dl (12.0-15.5); LYMPH # 2.6 10^3/uL (1.5-5.0); LYMPH % 31.3 % (24.0-44.0); MEAN CORPUSCULAR HEMOGLOBIN 30.6 pg (27.0-33.0); MEAN CORPUSCULAR HGB CONC 32.8 g/dl (32.0-36.5); MEAN CORPUSCULAR VOLUME 93.3 fl (80.0-96.0); MONO # 0.6 10^3/uL (0.0-0.8); MONO % 7.5 % (2.0-8.0); NEUTROPHILS # 4.6 10^3/uL (1.5-8.5); NEUTROPHILS % 56.2 % (36.0-66.0); PLATELET COUNT, AUTOMATED 345 10^3/uL (150-450); RED BLOOD COUNT 4.21 10^6/uL (4.00-5.40); WHITE BLOOD COUNT 8.2 10^3/uL (4.0-10.0)
== END ==
LOC: M LAB REF 17:19
PROVIDERS: ATTEND Nurse Practitioner Family
DX: E78.6 Lipoprotein deficiency (principal); E66.9 Obesity, unspecified; E55.9 Vitamin D deficiency, unspecified

== ENCOUNTER → 2024-04-23 | Outpatient (REF) | payer OTHER ==
[2024-04-23 12:59] LABS: ALBUMIN 3.8 G/DL (3.2-5.2); ALKALINE PHOSPHATASE 71 U/L (46-116); ALT/SGPT 21 U/L (7.0-40); AST/SGOT 19 U/L (<34); BILIRUBIN,TOTAL 0.5 MG/DL (0.3-1.2); BLOOD UREA NITROGEN 9 MG/DL (9-23); CALCIUM LEVEL 9.4 MG/DL (8.3-10.6); CARBON DIOXIDE LEVEL 25 MMOL/L (20-31); CHLORIDE LEVEL 108 MMOL/L (98-107); CHOLESTEROL LEVEL 203 MG/DL (<200); CHOLESTEROL RISK RATIO 4.17 (<5); CREATININE FOR GFR 0.92 MG/DL (0.55-1.30); GLOMERULAR FILTRATION RATE > 60.0 (>45); GLUCOSE, FASTING 94 MG/DL (74-106); HDL CHOLESTEROL 48.6 MG/DL (>40); LDL CHOLESTEROL 120.4 MG/DL (<100); NON-HDL-C 154.4 MG/DL; POTASSIUM SERUM 3.7 MMOL/L (3.5-5.1); SODIUM LEVEL 139 MMOL/L (136-145); TOTAL PROTEIN 6.7 G/DL (5.7-8.2); TRIGLYCERIDES LEVEL 170 MG/DL (<150)
[2024-04-23 13:08] LABS: HEMOGLOBIN A1c 5.6 % (4.0-6.0)
== END ==
LOC: M LAB REF 11:49
PROVIDERS: ATTEND Nurse Practitioner Family
DX: R73.03 Prediabetes (principal); E78.01 Familial hypercholesterolemia

== ENCOUNTER → 2024-06-13 | Outpatient (CLI) | payer OTHER | LOC: M PLARAD 13:58 | PROVIDERS: ATTEND Nurse Practitioner Family | DX: G43.011 Migraine without aura, intractable, with status migrainosus (principal); R20.2 Paresthesia of skin ==

== ENCOUNTER → 2024-09-12 | Outpatient (CLI) | payer OTHER ==
[2024-09-12 12:11] LABS: ALBUMIN 3.7 G/DL (3.2-5.2); BILIRUBIN,TOTAL 0.2 MG/DL (0.3-1.2); CALCIUM LEVEL 9.7 MG/DL (8.3-10.6); CREATININE FOR GFR 1.03 MG/DL (0.55-1.30); POTASSIUM SERUM 3.6 MMOL/L (3.5-5.1); TOTAL PROTEIN 6.9 G/DL (5.7-8.2)
== END ==
LOC: M LAB 11:17
PROVIDERS: ATTEND Psychiatry & Neurology Neurology
DX: G35 Multiple sclerosis (principal); G43.011 Migraine without aura, intractable, with status migrainosus; R20.2 Paresthesia of skin

== ENCOUNTER → 2024-11-26 | Outpatient (REF) | payer OTHER ==
[2024-11-26 17:34] LABS: BASO # 0.1 10^3/uL (0.0-0.2); BASO % 1.1 % (0.0-1.0); EOS # 0.2 10^3/uL (0.0-0.5); EOS % 3.8 % (0.0-3.0); HEMATOCRIT 41.7 % (36.0-47.0); LYMPH # 1.2 10^3/uL (1.5-5.0); LYMPH % 25.9 % (24.0-44.0); MEAN CORPUSCULAR HEMOGLOBIN 30.9 pg (27.0-33.0); MEAN CORPUSCULAR HGB CONC 33.6 g/dl (32.0-36.5); MEAN CORPUSCULAR VOLUME 92.1 fl (80.0-96.0); MONO # 0.7 10^3/uL (0.0-0.8); MONO % 14.3 % (2.0-8.0); NEUTROPHILS # 2.6 10^3/uL (1.5-8.5); NEUTROPHILS % 54.7 % (36.0-66.0); PLATELET COUNT, AUTOMATED 313 10^3/uL (150-450); RED BLOOD COUNT 4.53 10^6/uL (4.00-5.40); WHITE BLOOD COUNT 4.7 10^3/uL (4.0-10.0)
[2024-11-26 17:37] LABS: ALBUMIN 3.9 G/DL (3.2-5.2); BILIRUBIN,TOTAL 0.4 MG/DL (0.3-1.2); CALCIUM LEVEL 10.1 MG/DL (8.3-10.6); CHOLESTEROL RISK RATIO 3.43 (<5); CREATININE FOR GFR 1.16 MG/DL (0.55-1.30); GLOMERULAR FILTRATION RATE 50.6 (>45); HDL CHOLESTEROL 51.8 MG/DL (>40); LDL CHOLESTEROL 102.6 MG/DL (<100); NON-HDL-C 126.2 MG/DL; POTASSIUM SERUM 3.9 MMOL/L (3.5-5.1); TOTAL PROTEIN 7.1 G/DL (5.7-8.2)
[2024-11-26 18:11] LABS: HEMOGLOBIN A1c 5.7 % (4.0-6.0)
== END ==
LOC: M LAB REF 16:27
PROVIDERS: ATTEND Nurse Practitioner Family
DX: E66.9 Obesity, unspecified (principal); E78.01 Familial hypercholesterolemia

== ENCOUNTER → 2025-05-05 | Outpatient (REF) | payer OTHER, MEDICAID ==
[2025-05-05 13:17] LABS: ALT/SGPT 16.0 U/L (7.0-40); AST/SGOT 21.0 U/L (<34); CALCIUM LEVEL 9.1 MG/DL (8.3-10.6); CARBON DIOXIDE LEVEL 24.0 MMOL/L (20-31); CHLORIDE LEVEL 109.0 MMOL/L (98-107); CREATININE FOR GFR 1.08 MG/DL (0.55-1.30); GLOMERULAR FILTRATION RATE 58.1 (>45); POTASSIUM SERUM 3.9 MMOL/L (3.5-5.1); SODIUM LEVEL 144.0 MMOL/L (136-145)
== END ==
LOC: M LABWUC 12:16
PROVIDERS: ATTEND Psychiatry & Neurology Neurology
DX: R42 Dizziness and giddiness (principal); G43.011 Migraine without aura, intractable, with status migrainosus; R20.2 Paresthesia of skin

== ENCOUNTER → 2025-05-06 | Outpatient (REF) | payer OTHER, MEDICAID ==
[2025-05-06 15:14] LABS: ALT/SGPT 18.0 U/L (7.0-40); AST/SGOT 21.0 U/L (<34); CALCIUM LEVEL 9.7 MG/DL (8.3-10.6); CARBON DIOXIDE LEVEL 26.0 MMOL/L (20-31); CHLORIDE LEVEL 111.0 MMOL/L (98-107); CHOLESTEROL LEVEL 183.0 MG/DL (<200); CHOLESTEROL RISK RATIO 3.33 (<5); CREATININE FOR GFR 1.08 MG/DL (0.55-1.30); GLOMERULAR FILTRATION RATE 58.1 (>45); LDL CHOLESTEROL 102.5 MG/DL (<100); NON-HDL-C 128.1 MG/DL; POTASSIUM SERUM 4.2 MMOL/L (3.5-5.1); SODIUM LEVEL 147.0 MMOL/L (136-145); TRIGLYCERIDES LEVEL 128.0 MG/DL (<150)
[2025-05-06 15:18] LABS: TOTAL 25(OH) VITAMIN D 44.0 NG/ML (20.0-100.0)
[2025-05-06 17:19] LABS: ESTIMATED AVERAGE GLUCOSE 114.0 MG/DL (60-110)
== END ==
LOC: M LAB REF 09:17
PROVIDERS: ATTEND Nurse Practitioner Family
DX: R73.03 Prediabetes (principal); E78.01 Familial hypercholesterolemia; E55.9 Vitamin D deficiency, unspecified

== ENCOUNTER → 2025-05-13 | Outpatient (REF) | payer OTHER, MEDICAID ==
[2025-05-15 14:33] LABS: HPV APTIMA Not Detected (Not Detected)
== END ==
LOC: M LAB REF 12:21
PROVIDERS: ATTEND Physician Assistant
DX: Z12.4 Encounter for screening for malignant neoplasm of cervix (principal); R87.615 Unsatisfactory cytologic smear of cervix

== ENCOUNTER → 2025-10-07 | Outpatient (REF) | payer OTHER, MEDICAID ==
[2025-10-07 14:05] LABS: ESTIMATED AVERAGE GLUCOSE 117.0 MG/DL (60-110)
== END ==
LOC: M LAB REF 12:55
PROVIDERS: ATTEND Physician Assistant
DX: R73.03 Prediabetes (principal)